=== PATIENT | male | born 1940 | race Caucasian/White ===

== ENCOUNTER 2018-02-22 05:57 | Inpatient (IN) | payer MEDICARE, BC ==
[2018-02-22 07:00] LABS: ALT (SGPT) 56 U/L (8-55); AST (SGOT) 64 U/L (5-34); Albumin 3.6 g/dL (3.4-4.8); Alkaline Phosphatase 659 U/L (40-150); Anion Gap 25 mmol/L (10-20); BUN (Urea Nitrogen) 74 mg/dL (8.4-25.7); Bilirubin, Total 0.3 mg/dL (0.2-1.2); Calc. Creatinine Clearance 0 mL/min (70-130); Calcium 9.1 mg/dL (7.8-10.44); Carbon Dioxide 15 mmol/L (23-31); Chloride 100 mmol/L (98-107); Estimated GFR-MDRD 7; Globulin 2.8 g/dL (2.4-3.5); Glucose 119 mg/dL (83-110); Potassium 4.9 mmol/L (3.5-5.1); Protein, Total 6.4 g/dL (5.8-8.1); Sodium 135 mmol/L (136-145)
[2018-02-22 07:01] LABS: Bilirubin Negative (Negative); Blood, Urine Negative (Negative); Clarity Slightly Cloudy (Clear); Glucose, Urine (Dipstick) Negative (Negative); Leukocyte Negative (Negative); Nitrite Negative (Negative); Protein, Urine (Dipstick) Negative (Neg-Trace); Urobilinogen 0.2 mg/dL (0.2-1.0)
[2018-02-22 07:02] LABS: Specific Gravity, Urine 1.012 (1.002-1.036)
[2018-02-22 07:48] LABS: #Basophils 0.1 thou/uL (0.0-0.2); #Eosinphils 0.1 thou/uL (0.0-0.7); #Lymphocytes 1.1 thou/uL (1.20-3.40); #Monocytes 0.5 thou/uL (0.11-0.59); #Neutrophils 6.1 thou/uL (1.40-6.50); %Basophils 0.7 % (0.0-1.0); %Lymphocytes 14.4 % (21.0-51.0); %Neutrophils 77.9 % (42.0-75.0); Hemoglobin 11.5 g/dL (14.0-18.0); Mean Corpuscular HGB CONC 34.6 g/dL (32.0-36.0); Mean Corpuscular Volume 83.9 fL (78.0-98.0); Mean Platelet Volume 6.7 fL (7.4-10.4); Platelet Count 169 thou/uL (130-400); RBC Distribution Width 12.3 % (11.5-14.5); Red Blood Cell (RBC) Count 3.98 mill/uL (4.70-6.10); White Blood Cell (WBC) Count 7.8 thou/uL (4.8-10.8)
[2018-02-22] MEDS ORDERED: HYDROcodone/Acetaminophen 5/325 mg Tablet ONE (08:58)
[2018-02-22] MEDS ORDERED: Ondansetron HCl/PF 4 MG/2 ML Vial ONE (08:58)
[2018-02-22 10:48] VITALS: BMI 24.7
[2018-02-22] MEDS ORDERED: Sodium Chloride 0.9% 1,000 ML IV SCH (11:00)
[2018-02-22] MEDS ORDERED: Ondansetron ODT 4 MG TAB SL PRN (11:00)
[2018-02-22] MEDS ORDERED: HYDROcodone/Acetaminophen 5/325 mg Tablet PO PRN ×2 (11:00)
[2018-02-22] MEDS ORDERED: Ondansetron HCl/PF 4 MG/2 ML Vial IVP PRN (11:00)
[2018-02-22] MEDS ORDERED: Acetaminophen 325 MG TAB PO PRN (12:27)
[2018-02-22] MEDS ORDERED: Diazepam 5 MG TAB PO SCH (13:00)
--- NOTE | 2018-02-22 13:41 | HP ---
PRIMARY CARE PROVIDER: Dr. Olguin. HISTORY OF PRESENT ILLNESS: The patient has a history of pelvic discomfort, decreased urinary amount s with increased frequency since early this year. He has had nocturia 8-10 times. In July, he wa s put on Flomax, sent to urologist to continue the Flomax. No change. In October, he continued to hav e pelvic discomfort. He thought it was worse. His urination was worse. He was put on tolterodine 4 mg a day. He went back to see the urologist, was started Myrbetriq, no improvement. He got worse, weak, lethargic, sleepy, easy fatigued. Stopped all medicines on his own. Mid December, he has had incr easing pelvic discomfort, started taking Tylenol, then moved to aspirin products like Martine-Harcourt, B C powder. In the past several days, his urinary stream has dropped to drops and pain is worse. He w ent to the emergency room and found to have a distended bladder. Smart catheter was placed. Initial ly, the urine was clear, it is now bloody, looking like hyde Reji-Aid. He notes that the pelvic ba ck pain radiated down to his knees. Also, notes that he fell, December a year ago, while on vacation. PAST MEDICAL HISTORY: Hypertension; elevated cholesterol; polio as a child, recovered. CURRENT MEDICATIONS: diphenhydramine, aspirin 81 mg a day, aspirin with caffeine, aspirin with sodium bicarbonate and citric acid, , Zetia 10 mg a day, Myrbetriq, Flomax, tolterodine tartrat e 4 mg a day, valsartan/hydrochlorothiazide 160/12.5 one a day. ALLERGIES: ASPIRIN and NSAIDS. PAST SURGICAL HISTORY: None. FAMILY HISTORY: Mother of CHF at 88. Father of CHF at 82. He had mild diabetes. He has a sister that of coronary artery disease with diabetes and a sister that of colon cancer. He is a nonsmoker, nonalcohol drinker. FULL CODE status. . , next of kin, at bedside. REVIEW OF SYSTEMS: General: He said he did have chills and shakes when he was on the 3 urinary trac t medicines. Eyes: No double vision, blurred vision, flashing of lights. Ears, Nose, and Throat: No ear pain or drainage. No nasal bleeding. No trouble swallowing. Cardiac: No chest pain, orthop maria isabel, or paroxysmal nocturnal dyspnea. Respirations: No cough, wheezing, or asthma. Gastrointestina l: He had nausea and vomiting once a day for the past several days. He has had black tarry stools, which he relates to his Pepto-Bismol he has taken at times. Musculoskeletal: He has pain in his pel vis and his hips. He states he is unable to sleep on either side due to the pain in his hip joints. Neurological: No strokes, seizures, or focal weakness. Psychiatric: No anxiety or depression. Sk in: Easy bruising relates to aspirin. No rash. Heme/Lymph: No tender or swollen lymph nodes in ax illa, inguinal, or cervical area. PHYSICAL EXAMINATION: GENERAL: He is an alert, cooperative, pleasant gentleman, in no acute distress. VITAL SIGNS: Temperature 98.2, pulse 70, respirations 16, O2 sat 95, blood pressure 166/70. HEENT: Examination of his head, eyes, ears, nose, and throat reveal pupils equal, round, and reactiv e to light. Extraocular movements are intact. Sclerae white. Tympanic membranes clear. Nose clear . Throat is clear. NECK: Supple, without jugular venous distention, adenopathy, or thyromegaly. CHEST: Clear to auscultation. HEART: Regular rate and rhythm. First and second heart sounds are clear. There are no appreciated murmurs or gallops. ABDOMEN: Soft, bowel sounds are normal. There is no hepatosplenomegaly, no mass, no rebound, no bru its. EXTREMITIES: Reveal no cyanosis, clubbing, or edema. PULSES: Carotid, radial, femoral, and dorsalis pedis pulses full and symmetric. SKIN: Warm and dry with some minor actinic changes-related bruising on his forearms. HEME/LYMPH: No tender or swollen lymph nodes in axilla, inguinal, or cervical area. NEUROLOGICAL: Cranial nerves II-XII are intact. Deep tendon reflexes seem to be fairly hyper his le gs to me, although his strength is not noticeably diminished. Toes downgoing. X-RAY FINDINGS: No EKG or chest x-ray; they have been ordered. LABORATORY DATA: Sodium 135, potassium 4.9, CO2 of 15, BUN 74, creatinine 7.3, blood sugar 119, AST 64, ALT 56, alkaline phosphatase 659. Urine is clear. White count 7.8, hemoglobin 11.5, platelet co unt 169,000. ADMITTING DIAGNOSES: 1. Acute renal failure. 2. Obstructive uropathy. 3. Pelvic pain. 4. Hypertension. 5. History of fall. ASSESSMENT: 1. The etiology of this patient's acute renal failure and obstructive uropathy is not clear. Workup will involve an MRI of the spine to look for evidence of spinal injury and cord compression. Also, CT of the abdomen without contrast will be done to look at his kidneys, his ureters, his bladder. Pl ain films of the pelvis will be done to look at his pelvic bones for possible lytic lesions. 2. Urinalysis and urine culture will be done. PSA will be done. Smart has been placed. Renal func tion test will be followed daily. Urology will be consulted eventually. Dr. Ray will be consulted f or acute renal failure.
[2018-02-22] MEDS: HYDROcodone/Acetaminophen 5/325 mg Tablet PO PRN ×3 (14:25→22:19)
[2018-02-22] MEDS: Ondansetron ODT 4 MG TAB PO PRN ×2 (14:25→22:36)
[2018-02-22 14:47] LABS: Bilirubin Negative (Negative); Blood, Urine Large (Negative); Clarity CLOUDY (Clear); Glucose, Urine (Dipstick) Negative (Negative); Leukocyte Moderate (Negative); Nitrite Negative (Negative); Protein, Urine (Dipstick) 30 mg/dL (Neg-Trace); Specific Gravity, Urine 1.014 (1.002-1.036); Urobilinogen 0.2 mg/dL (0.2-1.0); pH, Urine 5.5 (5.0-9.0)
[2018-02-22 14:49] LABS: Bacteria/HPF None Seen HPF (None Seen); Hyaline Casts/LPF 0-3 HYALINE CAST LPF (0-3 Hyaline); Pathc Cast-AUWi Flag 0.14 (0-2.49); RBC/HPF GREATER THAN 50-TNTC HPF (0-3); Squamous Epithelial None Seen HPF (0-3); WBC/HPF 0-3 HPF (0-3)
[2018-02-22] MEDS ORDERED: Calcium Carbonate 500 MG ChewTAB PO PRN (15:16)
--- NOTE | 2018-02-22 15:20 | RAD ---
PA AND LATERAL VIEWS OF THE CHEST: History: Pelvic pain. FINDINGS: Heart size is normal. The aorta is tortuous. The lungs are expanded without focal areas of consolidat ion or pneumothorax. There are pleural effusions. There are degenerative changes in the spine. IMPRESSION: No acute process. POS: [facility]
--- NOTE | 2018-02-22 17:38 | MRI ---
MRI LUMBAR SPINE WITHOUT CONTRAST: HISTORY: Bladder retention. Pelvic pain. FINDINGS: The vertebral body heights are maintained. There is diffuse heterogeneity and reduction in the bone marrow signal on the T1 images. There is grade 1 anterolisthesis of L5 over S1. Disk desiccation is most prominent at the L5-S1 level. Disk space narrowing is noted at multiple levels in the lower th oracic and upper lumbar spine. The conus medullaris ends at the L2 level. There are disk bulges at the L3-L4, L4-L5, and L5-S1 levels, and bilateral acetabular atrophic changes. There is mild to mode rate central canal stenosis at the L4-L5 level. Mild left neural foraminal stenosis is seen at the L 3-L4, L4-L5, and L5-S1 levels. There is mild right-sided neural foraminal stenosis at the L5-S1 leve l. Incidental note is also made of prominent pelvicalyceal systems and ureters bilaterally. The paraspi nal musculature is unremarkable. IMPRESSION: 1. Lumbar spondylosis with central and neural foraminal stenosis, as discussed above. 2. Grade 1 anterolisthesis of L5/S1. 3. Marrow abnormality. Correlation for myeloproliferative, lymphoproliferative, or infiltrative dis orders is recommended. 4. Probable bilateral hydroureteronephrosis. Dedicated CT scan of the abdomen and pelvis using the urography protocol is recommended. POS: [facility]
--- NOTE | 2018-02-22 17:46 | RAD ---
FRONTAL VIEW PELVIS: INDICATIONS: Pelvic pain. FINDINGS: Diffuse degenerative change of the imaged pelvic and lower lumbar osseous structures is present. No acute fracture. There are pelvic phleboliths. There is a focal area of increased density overlying the left ilium, not further localized on the basis of this exam. There is incidental note of a urinary catheter. IMPRESSION: 1. No acute fracture of the pelvis. 2. Density overlying the left ilium, not further localized. This could relate to superimposed struc ture or, alternatively, a sclerotic focus of the left ilium. Follow-up imaging may prove useful for further delineation. POS: [facility]
--- NOTE | 2018-02-22 17:52 | CT ---
CT ABDOMEN AND PELVIS NONCONTRAST: HISTORY: Renal failure. FINDINGS: There is moderate distention of each renal collecting system and ureter, to the level of the urinary bladder, which is decompressed by a Smart catheter. There is wall thickening of the bladder with mathew e irregularity. Gas within the bladder is likely related to instrumentation. No stones are apparent along the course of either urinary tract. Lack of contrast limits evaluation for other abnormalities. There is left pleural fluid with bibasil ar atelectasis. There is no evidence of bowel obstruction. A rounded, exophytic mass projecting lat erally from the superior pole left kidney is 3.8 cm in diameter and warrants further evaluation. Str anding is present throughout the left perirenal fat with a small amount of fluid. Prominent arterial calcification. Degenerative changes of the lumbar spine. IMPRESSION: 1. Moderate bilateral hydroureteronephrosis without cause evident. The urinary bladder is now decom pressed by a Smart catheter. While bilateral and symmetric partial ureterovesical junction obstructi ons are a possibility, other possibilities would include chronic reflux or persistent dilatation rela kimmie to recent and longstanding urinary outlet obstruction with immediately prior bladder decompressio n. 2. Stranding within the left perirenal fat may reflect urine from a forniceal rupture. It does not have the appearance of clotted blood. 3. Exophytic mass at the superior pole left kidney, 3.8 cm. This has the appearance of a cyst on re cent MRI lumbar spine. 4. Atherosclerosis. 5. Small left pleural effusion. Cause is not evident. POS: [facility]
[2018-02-22] MEDS: Sodium Chloride 0.9% 1,000 ML IV SCH ×2 (18:15→21:25)
[2018-02-22] MEDS ORDERED: Valsartan 80 MG TAB PO SCH (20:30)
[2018-02-22] MEDS ORDERED: hydrALAZINE 10 MG TAB PO PRN (20:31)
[2018-02-22] MEDS ORDERED: Hydrochlorothiazide 25 MG TAB PO SCH (20:45)
[2018-02-22] MEDS: Zolpidem Tartrate 5 MG TAB PO PRN (20:52)
[2018-02-22] MEDS ORDERED: VALSARTAN PO SCH (21:15)
[2018-02-22] MEDS ORDERED: HCTZ PO SCH (21:15)
[2018-02-23] MEDS: HYDROcodone/Acetaminophen 5/325 mg Tablet PO PRN ×4 (03:35→21:01)
[2018-02-23] MEDS: Sodium Chloride 0.9% 1,000 ML IV SCH ×5 (03:36→21:02)
[2018-02-23] MEDS: Ondansetron ODT 4 MG TAB PO PRN ×2 (04:38→11:34)
[2018-02-23 05:16] LABS: Anion Gap 18 mmol/L (10-20); BUN (Urea Nitrogen) 54 mg/dL (8.4-25.7); Calc. Creatinine Clearance 16 mL/min (70-130); Calcium 8.6 mg/dL (7.8-10.44); Carbon Dioxide 17 mmol/L (23-31); Chloride 107 mmol/L (98-107); Estimated GFR-MDRD 13; Glucose 82 mg/dL (83-110); Potassium 4.6 mmol/L (3.5-5.1); Sodium 137 mmol/L (136-145)
[2018-02-23] MEDS: HCTZ PO SCH (07:40)
[2018-02-23] MEDS: Ezetimibe 10 MG TAB PO SCH (07:40)
[2018-02-23] MEDS: VALSARTAN PO SCH (07:40)
--- NOTE | 2018-02-23 08:12 | PDOC.PN ---
- Subjective Encounter Start Date: 02/23/18 Encounter Start Time: 08:09 Subjective: no fever, chills. back pain persists - Objective Resuscitation Status: Resuscitation Status FULL:Full Resuscitation MAR Reviewed: Yes Vital Signs & Weight: Vital Signs (12 hours) Temp Pulse Resp BP Pulse Ox 02/23/18 04:00 98.3 F 72 14 137/73 94 L 02/23/18 00:22 98.7 F 62 12 169/75 H 92 L Weight Weight 172 lb 0.074 oz I&O: 02/22/18 02/23/18 02/24/18 06:59 06:59 06:59 Output Total 1450 Balance -1450 Result Diagrams: 02/22/18 07:30 02/23/18 04:21 Phys Exam - Physical Examination Neck: no JVD Respiratory: clear to auscultation bilateral Cardiovascular: RRR, no significant murmur Gastrointestinal: soft, non-tender Musculoskeletal: no edema Dx/Plan (1) Acute renal failure Status: Acute Qualifiers: Acute renal failure type: unspecified Qualified Code(s): N17.9 - Acute kidney failure, unspecified (2) Obstructive uropathy Code(s): N13.9 - OBSTRUCTIVE AND REFLUX UROPATHY, UNSPECIFIED Status: Acute (3) HTN (hypertension) Code(s): I10 - ESSENTIAL (PRIMARY) HYPERTENSION Status: Chronic Qualifiers: Hypertension type: essential hypertension Qualified Code(s): I10 - Essential (primary) hypertension (4) Back pain Code(s): M54.9 - DORSALGIA, UNSPECIFIED Status: Acute Qualifiers: Back pain location: back pain in unspecified location - Plan cont ortiz drainage -: urology consult -: morphine prn for pain * .
[2018-02-23] MEDS ORDERED: Valsartan 80 MG TAB PO SCH (09:00)
[2018-02-23] MEDS ORDERED: Hydrochlorothiazide 25 MG TAB PO SCH (09:00)
[2018-02-23] MEDS: Polyethylene Glycol OPTH DROP 15 ML BOT EA EYE SCH (09:20)
[2018-02-23] MEDS: Polyethylene Glycol 3350 17 GM Packet PO PRN (09:20)
[2018-02-23] MEDS: Latanoprost 0.005% Ophth Soln 2.5 ml Bottle EA EYE SCH (09:20)
--- NOTE | 2018-02-23 23:54 | CON ---
DATE OF CONSULTATION: 02/22/2018 HISTORY OF PRESENT ILLNESS: This is a 77-year-old white male of Dr. Brito' from [facility], who had asked me to see today. He came in, I believe, yesterday with back pain and found to have a creatinine of 7. His bladder was distended, and he had a Smart catheter placed in the emergency de partment and then ended up having a CAT scan done, because of his creatinine being elevated. The CAT scan showed bilateral hydro. The bladder at that point was not distended. He had some thickening o f the bladder ham[place] and some air in the bladder. It was most likely from the catheter placement. It looked like he had about 1100 mL in his bag drainage. I am not sure if that was the whole time he w as in the ER or if that is just after the Smart was placed. His creatinine has already improved in t he mid 4 range today. He is making good urine output. His urine was initially clear. The initial u rinalysis was negative, but his urine became grossly bloody, which is not uncommon after placement of a Smart catheter. The CAT scan did not show any evidence of obvious renal mass or stone. It was a noncontrast study, however, because of the elevated creatinine. There was a little bit of straining around the left perirenal region. There was probably a cyst in the left kidney, looked like a cyst o n a recent MRI of the lumbar spine. He also did have a lumbar spine, because of back pain that did n ot get better with the placement of Smart catheter. His pelvic pain did, but his back pain did not, and this showed some changes of spondylosis, and perhaps some marrow abnormality. I think Dr. Brito is working this up. On talking with him further, he has been having difficulty urinating for probabl y a year, although it became bad enough that, in July, he sought help and was started on tamsulosi n without much benefit and then added some Detrol, because of urinary frequency and then added some M yrbetriq. He actually stopped taking all of these a week or so before coming in to the hospital at t his point. He has not had urinary tract infections or stone disease. He has never seen blood in his urine, but did have microscopic blood in his urine on the physical exam in the last few months. He has been having constipation over the last few months. No family history of prostate cancer, no prio r prostate surgery himself, no prior history of Smart catheterization. His PSAs generally have been normal, although his PSA slightly over 5 now, but that was done after the catheter was in. He, over the last few months, has been having steadily worsening flow of his stream, just dribbling, decreasin g caliber and force behind the stream, increasing nocturia, increasing urgency, urge incontinence to the point it has probably been an overflow incontinence. MEDICAL HISTORY: Positive for hypertension, hypercholesterolemia, and childhood polio, which has lef t him with minimal problems with his left arm and right leg. He takes aspirin. He takes occasional bicarb. He takes Zetia, and he is mentioning he was on Detrol, Flomax, and Myrbetriq before coming i n, but is not on it for a week or two before coming in. He takes valsartan, hydrochlorothiazide. ALLERGIES: He has allergies to NONSTEROIDALS and says he has an allergy to ASPIRIN, but I think he i s taking aspirin. He has not had any other surgeries. PHYSICAL EXAMINATION: ABDOMEN: His flanks are nontender. His abdomen is soft and nontender. GENITOURINARY: He is not circumcised. There is no phimosis, no lesions. Testicles are descended wi thout mass or tenderness. Smart catheter is draining a slightly bloody urine. He does have, what ap pears to be, fairly normal sensation on his inner thighs and perianal region. He has got normal rect al tone and voluntary anal contraction. He has got normal strength in his lower extremities. IMPRESSION: 1. Elevated creatinine, most likely post-renal cause with a distended urinary bladder that has been corrected with an indwelling Smart catheter. I would expect his creatinine to return to nearly basel ine for him. 2. Hematuria. This should also clear in the next day or two and it is typical with somebody with a distended bladder that has had a Smart placed. 3. Probable renal cyst. 4. Longstanding lower urinary tract symptoms. I think the best way to manage this would be to leave this catheter in for about 10 days to see him in the office and do a cystometrogram and a cystoscopy and see if we are dealing with obstruction or if we are dealing with a weak detrusor. This is all e xplained to him. All questions were answered, spent probably 45 minutes to an hour with the patient and his . I w ill follow along with you.
[2018-02-24] MEDS: HYDROcodone/Acetaminophen 5/325 mg Tablet PO PRN ×2 (00:50→05:12)
[2018-02-24 04:50] LABS: Anion Gap 16 mmol/L (10-20); BUN (Urea Nitrogen) 48 mg/dL (8.4-25.7); Calc. Creatinine Clearance 17 mL/min (70-130); Carbon Dioxide 19 mmol/L (23-31); Chloride 109 mmol/L (98-107); Estimated GFR-MDRD 15; Glucose 78 mg/dL (83-110); Potassium 4.9 mmol/L (3.5-5.1); Sodium 139 mmol/L (136-145)
[2018-02-24] MEDS: Sodium Chloride 0.9% 1,000 ML IV SCH ×4 (04:57→20:12)
[2018-02-24] MEDS: Ondansetron ODT 4 MG TAB PO PRN ×2 (07:47→20:13)
--- NOTE | 2018-02-24 07:48 | PDOC.PN ---
- Subjective Encounter Start Date: 02/24/18 Encounter Start Time: 07:45 Subjective: severe back pain persists, gross hematuia persists - Objective Resuscitation Status: Resuscitation Status FULL:Full Resuscitation MAR Reviewed: Yes Vital Signs & Weight: Vital Signs (12 hours) Temp Pulse Resp BP Pulse Ox 02/24/18 07:19 98.0 F 68 18 139/75 93 L 02/23/18 20:00 98.4 F 73 18 97 Weight Admit Weight 172 lb 0.074 oz Weight 172 lb 0.074 oz I&O: 02/23/18 02/24/18 02/25/18 06:59 06:59 06:59 Intake Total 0 2139 Output Total 3100 1575 Balance -1050 564 Result Diagrams: 02/22/18 07:30 02/24/18 03:30 Phys Exam - Physical Examination Neck: no JVD Respiratory: clear to auscultation bilateral Cardiovascular: RRR, no significant murmur Gastrointestinal: soft, positive bowel sounds Musculoskeletal: no edema Dx/Plan (1) Acute renal failure Status: Acute Qualifiers: Acute renal failure type: unspecified Qualified Code(s): N17.9 - Acute kidney failure, unspecified (2) Obstructive uropathy Code(s): N13.9 - OBSTRUCTIVE AND REFLUX UROPATHY, UNSPECIFIED Status: Acute (3) HTN (hypertension) Code(s): I10 - ESSENTIAL (PRIMARY) HYPERTENSION Status: Chronic Qualifiers: Hypertension type: essential hypertension Qualified Code(s): I10 - Essential (primary) hypertension (4) Back pain Code(s): M54.9 - DORSALGIA, UNSPECIFIED Status: Acute Qualifiers: Back pain location: back pain in unspecified location - Plan consult nephrology -: consult NS -: cont ortiz -: monitor renal fcn * .
[2018-02-24] MEDS: Polyethylene Glycol OPTH DROP 15 ML BOT EA EYE SCH (07:49)
[2018-02-24] MEDS: Latanoprost 0.005% Ophth Soln 2.5 ml Bottle EA EYE SCH (07:49)
[2018-02-24] MEDS: Ezetimibe 10 MG TAB PO SCH ×2 (07:50→09:04)
[2018-02-24] MEDS: HYDROcodone/Acetaminophen 7.5/325 mg Tablet PO PRN ×4 (09:01→20:33)
[2018-02-24] MEDS: Polyethylene Glycol 3350 17 GM Packet PO PRN (09:04)
[2018-02-24] MEDS: HCTZ PO SCH (09:04)
[2018-02-24] MEDS: VALSARTAN PO SCH (09:04)
[2018-02-24] MEDS ORDERED: Albumin 25% 25 GM/100 ML BOT IVPB ONE (09:09)
[2018-02-24] MEDS: Albumin 25% 25 GM/100 ML BOT IVPB SCH ×3 (12:40→23:43)
--- NOTE | 2018-02-24 13:22 | CON ---
DATE OF CONSULTATION: 02/24/2018 HISTORY OF PRESENT ILLNESS: Mr. 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 This was found to be secondary to obstructive uropathy. He does have history of BPH. Smart catheter has been inserted with diuresis noted. However, creatinine is not fu lly resolved to near normal or baseline GFR. Creatinine was initially noted in the 7s and currently is about 4.2 mg percent. We are being consulted for further management of this acute kidney injury. Please note the patient h as been seen by the urologist, Dr. Estrada. REVIEW OF SYSTEMS: Positive for back pain, occasional joint pains. No nausea, no vomiting. Positiv e for dysuria, positive for urinary frequency. No shortness of breath, no productive cough, no fever or chills. No headache, no hematochezia, no melena, no hematemesis. MEDICATIONS: [place] 7.5/325 q.4. p.r.n., albumin 25 grams IV q.6, Tums 500 mg p.o. t.i.d. p.r.n., Ze tia 10 mg daily, Xalatan eyedrop as directed, hydralazine p.r.n., Valsartan - currently on hold. PAST MEDICAL HISTORY: 1. Hypertension. 2. Benign prostatic hypertrophy. 3. Hyperlipidemia. 4. Status post polio. 5. Chronic low back pain. 6. Recent diagnosis of acute kidney injury secondary to obstructive uropathy. PAST SURGICAL HISTORY: Includes status post colonoscopy x2. ALLERGIES: NSAIDs. TRAUMA: Status post right forearm fracture, status post hand fracture. IMMUNIZATIONS: Up to date. HOSPITALIZATIONS: Please see past medical history. FAMILY HISTORY: No family history of ESRD. PHYSICAL EXAMINATION: VITAL SIGNS: Blood pressure is 139/75, heart rate 68, respiratory rate 18, temperature 98, pulse ox 93%. GENERAL: Noted to be awake, alert, comfortable, not in overt distress. SKIN: Adequate turgor. HEENT: He has pinkish conjunctivae, anicteric sclerae. NECK: No neck mass, no carotid bruits, no JVD. CHEST: No deformities. LUNGS: Clear breath sounds, no wheezing, no crackles. HEART: Normal sinus rhythm. No murmur, no gallops or rubs. ABDOMEN: Globular, soft, nontender, no masses. EXTREMITIES: No edema, no deformities. NEUROLOGICAL: Moving all extremities. No tremors, no asterixis, no ataxia. LABORATORY: 02/22/2018 - White count 7.8, hemoglobin 11.5. Sodium 139, potassium 4.9, chloride 109, carbon dioxide 19, BUN 48, creatinine 4.04, glucose 78, calcium 9.0. PSA 5.74. CT scan of the abdomen and pelvis shows hydronephrosis. 02/22/2018 - Chest x-ray; no acute process. Urinalysis of 02/22/2018, cloudy, RBC greater than 50, WBC 0-3. ASSESSMENT AND PLAN: 1. Acute kidney injury - most likely secondary to an obstructive uropathy. Smart catheter has been inserted. He is diuresing. My bias is simple continuation of the IV hydration. Currently on normal saline. I have decided to order salt poor albumin. Urine chemistries has also been ordered. The u rine sediment does not suggest any evidence of acute tubular necrosis. My anticipation is that the r enal function will further improve with the current conservative management. 2. Obstructive uropathy being managed by Urology. In the near future a planned cystoscopy is being made. There is no indication for dialytic intervention. Continue current management. Please note, the pat ient was previously on valsartan. This has now been discontinued. Please note, we did also have started the patient on salt poor albumin 25 grams IV q.6 for 3 days.
[2018-02-24 13:25] LABS: Creatinine, Urine 58.01 mg/dL (63-166)
[2018-02-24] MEDS: Zolpidem Tartrate 5 MG TAB PO PRN (20:38)
[2018-02-25] MEDS: HYDROcodone/Acetaminophen 7.5/325 mg Tablet PO PRN ×7 (00:53→23:57)
[2018-02-25] MEDS: Ondansetron ODT 4 MG TAB PO PRN ×3 (04:58→20:08)
[2018-02-25] MEDS: Albumin 25% 25 GM/100 ML BOT IVPB SCH ×4 (05:00→23:58)
[2018-02-25 06:22] LABS: Anion Gap 16 mmol/L (10-20); BUN (Urea Nitrogen) 40 mg/dL (8.4-25.7); Calc. Creatinine Clearance 23 mL/min (70-130); Calcium 8.8 mg/dL (7.8-10.44); Carbon Dioxide 16 mmol/L (23-31); Chloride 111 mmol/L (98-107); Estimated GFR-MDRD 20; Glucose 78 mg/dL (83-110); Potassium 4.4 mmol/L (3.5-5.1); Sodium 139 mmol/L (136-145)
[2018-02-25] MEDS: Sodium Chloride 0.9% 1,000 ML IV SCH ×4 (07:12→21:52)
[2018-02-25] MEDS: VALSARTAN PO SCH (08:20)
[2018-02-25] MEDS: HCTZ PO SCH (08:20)
[2018-02-25] MEDS: Ezetimibe 10 MG TAB PO SCH (08:27)
[2018-02-25] MEDS: Polyethylene Glycol OPTH DROP 15 ML BOT EA EYE SCH (08:28)
[2018-02-25] MEDS: Latanoprost 0.005% Ophth Soln 2.5 ml Bottle EA EYE SCH (08:29)
--- NOTE | 2018-02-25 10:16 | PRG ---
DATE OF SERVICE: 02/25/2018 SERVICE: Renal Medicine. SUBJECTIVE: Mr. Blood is a 77-year-old white male who was seen by the Renal Service for his acute k idney injury secondary to presumptive obstructive uropathy. A Smart catheter has been inserted. He has received crystalloids and I started him on Colace yesterday. Creatinine is slowly improving. Cr eatinine now is noted at 3.0 and yesterday this was about 4.1. He has no new complaints today. He s till has some mild gross hematuria noted. No complaints of chest pain or shortness of breath. OBJECTIVE: VITAL SIGNS: Blood pressure is 149/84, heart rate 85, respiratory rate 16, temperature 98.2, pulse o x 95%. GENERAL: Awake, alert, supine, comfortable, not in distress. SKIN: Adequate turgor. HEENT: He has pinkish conjunctivae, anicteric sclerae. NECK: No neck mass, no carotid bruits, no JVD. CHEST: No deformities. LUNGS: Clear breath sounds. HEART: Normal sinus rhythm. No murmur, no gallops, no rubs. ABDOMEN: Globular, soft, nontender, no masses. EXTREMITIES: No edema, no deformities. MEDICATIONS: Of 02/25/2018 was reviewed. LABORATORY DATA: Of 02/24/2018, urine sodium 102, urine creatinine 58. BUN 40, creatinine 3.0, pota ssium 4.4, bicarbonate 16. ASSESSMENT AND PLAN: Acute kidney injury - secondary to obstructive uropathy. Continue IV hydration . He is currently on albumin infusion as well as normal saline. Tomorrow if the renal function is m uch improved, consider decreasing urine normal saline to 125 mL per hour. Please note, renal functio n is much improved from a peak creatinine of 7.3 to most recent value of 3.0. No indication for any dialytic intervention. The patient is being followed up by Urology for his presumptive low bladder outlet obstruction. Recheck base met and CBC in a.m.
--- NOTE | 2018-02-25 11:00 | PDOC.PN ---
- Subjective Encounter Start Date: 02/25/18 Encounter Start Time: 10:58 Subjective: back pain improved, urine still bloody - Objective Resuscitation Status: Resuscitation Status FULL:Full Resuscitation MAR Reviewed: Yes Vital Signs & Weight: Vital Signs (12 hours) Temp Pulse Resp BP Pulse Ox 02/25/18 08:33 149/84 H 02/25/18 08:24 98.2 F 85 16 170/78 H 95 Weight Admit Weight 172 lb 0.074 oz Weight 172 lb 0.074 oz I&O: 02/24/18 02/25/18 02/26/18 06:59 06:59 06:59 Intake Total 2139 3850 Output Total 1575 2200 Balance 564 1650 Result Diagrams: 02/22/18 07:30 02/25/18 05:34 Phys Exam - Physical Examination Neck: no JVD Respiratory: clear to auscultation bilateral Cardiovascular: RRR, no significant murmur Gastrointestinal: soft, positive bowel sounds Musculoskeletal: no edema Dx/Plan (1) Acute renal failure Status: Acute Qualifiers: Acute renal failure type: unspecified Qualified Code(s): N17.9 - Acute kidney failure, unspecified (2) Obstructive uropathy Code(s): N13.9 - OBSTRUCTIVE AND REFLUX UROPATHY, UNSPECIFIED Status: Acute (3) HTN (hypertension) Code(s): I10 - ESSENTIAL (PRIMARY) HYPERTENSION Status: Chronic Qualifiers: Hypertension type: essential hypertension Qualified Code(s): I10 - Essential (primary) hypertension (4) Back pain Code(s): M54.9 - DORSALGIA, UNSPECIFIED Status: Acute Qualifiers: Back pain location: back pain in unspecified location (5) Hematuria Code(s): R31.9 - HEMATURIA, UNSPECIFIED Status: Acute - Plan renal fcn improving, good urine output -: back pain improving, NS consult pending -: urine C&S neg, no antibx indicated * .
[2018-02-25] MEDS: Sodium Bicarbonate Tab 325 MG TAB PO SCH ×3 (11:29→20:03)
--- NOTE | 2018-02-25 13:44 | CON ---
DATE OF CONSULTATION: 02/22/2018 HISTORY OF PRESENT ILLNESS: Mr. Blood is a 77-year-old man who was admitted to the hospital for syed ious reasons, one of those being low back pain with radicular L3 pains in left lower extremity. He h as a new MRI scan performed well. He has been in the hospital that reveals narrowing in the lateral recess and foramen at this level that likely matches. He has had this pain since a fall a few months ago on a trip in [place], pain has slowly worsened in time and at present causing him a great deal o f discomfort and disrupt a significant amount of his sleep. His pain is reasonably well controlled o n 7.5 mg [place] tablets while he has been inpatient, but it is new and ongoing problem. His joseph gonzales has cervical pains and has seen Dr. Campos, I think that would be a reasonable, first step would be to set up an injection and possibly a consult pain management while he is here and the patie nt is already and get that process rolling.
[2018-02-25] MEDS: Polyethylene Glycol 3350 17 GM Packet PO PRN (20:07)
[2018-02-25] MEDS: Zolpidem Tartrate 5 MG TAB PO PRN (20:08)
[2018-02-26] MEDS: Sodium Chloride 0.9% 1,000 ML IV SCH ×5 (02:30→18:20)
[2018-02-26] MEDS: Ondansetron ODT 4 MG TAB PO PRN ×3 (03:53→20:58)
[2018-02-26] MEDS: HYDROcodone/Acetaminophen 7.5/325 mg Tablet PO PRN ×7 (03:53→23:57)
[2018-02-26 05:08] LABS: Anion Gap 12 mmol/L (10-20); BUN (Urea Nitrogen) 41 mg/dL (8.4-25.7); Calc. Creatinine Clearance 21 mL/min (70-130); Calcium 8.8 mg/dL (7.8-10.44); Carbon Dioxide 19 mmol/L (23-31); Chloride 110 mmol/L (98-107); Estimated GFR-MDRD 18; Glucose 79 mg/dL (83-110); Potassium 4.3 mmol/L (3.5-5.1); Sodium 137 mmol/L (136-145)
[2018-02-26] MEDS: Albumin 25% 25 GM/100 ML BOT IVPB SCH ×2 (05:10→11:06)
[2018-02-26] MEDS: Ezetimibe 10 MG TAB PO SCH (08:39)
[2018-02-26] MEDS: Sodium Bicarbonate Tab 325 MG TAB PO SCH ×3 (08:39→20:57)
[2018-02-26] MEDS: Polyethylene Glycol OPTH DROP 15 ML BOT EA EYE SCH (08:39)
[2018-02-26] MEDS: Latanoprost 0.005% Ophth Soln 2.5 ml Bottle EA EYE SCH (08:40)
--- NOTE | 2018-02-26 10:02 | PRG ---
DATE OF SERVICE: 02/26/2018 SUBJECTIVE: Mr. Blood is a 77-year-old white male who was seen for his acute kidney injury. Initia lly, he was found to have obstructive uropathy. Smart catheter is inserted and this improved renal f unction. However, the renal function did not fully resolve to normal function. His creatinine is ho vering around 3.1 mg percent. We will be repeating renal ultrasound. IV hydration, crystalloid and colloids have been given. I have decreased normal saline to 100 mL per hour. No other complaints except for this back pain. He has been evaluated by Neurosurgery. He wa s found to have a radiculopathy and has been referred to pain clinic. No other complaints, no chest pain or shortness of breath. PHYSICAL EXAMINATION: VITAL SIGNS: Blood pressure is 167/82, heart rate 70, respiratory rate 18, temperature 99.9. GENERAL: Noted to be awake, sitting comfortable, not in distress. SKIN: Adequate turgor. HEENT: He has pinkish conjunctivae, anicteric sclerae. NECK: No neck mass, no carotid bruits, no JVD. CHEST: No deformities. LUNGS: Clear breath sounds, no wheezing, no crackles. HEART: Normal sinus rhythm. No murmurs, no gallops, no rubs. ABDOMEN: Globular, soft, nontender, no masses. EXTREMITIES: Trace edema. MEDICATIONS: Medications of 02/26/2018 was reviewed. LABORATORY DATA: Laboratories of 02/26/2018; sodium 137, potassium 4.3, chloride 110, carbon dioxide 19, BUN 41, creatinine 3.28, glucose 79, calcium 8.8. ASSESSMENT AND PLAN: 1. Acute kidney - secondary to obstructive uropathy. Creatinine is stable, but unimproved to a norm al baseline. We will repeat renal ultrasound. Please note his valsartan has already been discontinu ed. Continue supportive care. Continue gentle volume repletion, normal saline plus albumin. Please normal saline and has been decreased to 100 mL per hour. 2. Chronic low back pain. Neurosurgery has evaluated this patient. He is currently not a surgical candidate for any back surgery. Overall, agree with current management. Recheck base met and CBC in a.m.
[2018-02-26] MEDS: VALSARTAN PO SCH (11:00)
[2018-02-26] MEDS: HCTZ PO SCH (11:00)
--- NOTE | 2018-02-26 11:59 | ULT ---
BILATERAL RENAL ULTRASOUND: Date: 02/26/18 HISTORY: Renal failure, obstructive uropathy. FINDINGS: The right kidney measures 10.3 cm in length and the left kidney measures 12.2 cm in length. There is a 3.8 cm cyst in the superior pole of the left kidney. There bilateral hydronephrosis, right worse th an left. A Smart catheter is present in the urinary bladder. IMPRESSION: 1. Bilateral hydronephrosis, right worse than left. 2. Left renal cyst. POS: FOREIGN
[2018-02-26 16:15] LABS: A/G Ratio 0.9 (0.7-1.7); Albumin 2.7 g/dL (2.9-4.4); Alpha 1 0.4 g/dL (0.0-0.4); Alpha 2 1.1 g/dL (0.4-1.0); Beta 0.7 g/dL (0.7-1.3); Gamma 0.7 g/dL (0.4-1.8); Globulin, Total 2.9 g/dL (2.2-3.9); M-Spike 0.1 g/dL (Not Observed)
--- NOTE | 2018-02-26 20:54 | PDOC.PN ---
- Subjective Encounter Start Date: 02/26/18 Encounter Start Time: 11:00 Subjective: pt up in bed very upset about how long it takes for nursing to bring his -: medications. - Objective Resuscitation Status: Resuscitation Status FULL:Full Resuscitation Vital Signs & Weight: Vital Signs (12 hours) Temp Pulse Resp BP Pulse Ox 02/26/18 20:00 98.4 F 98 18 151/81 H 92 L Weight Admit Weight 172 lb 0.074 oz Weight 172 lb 0.074 oz I&O: 02/25/18 02/26/18 02/27/18 06:59 06:59 06:59 Intake Total 3850 4200 1620 Output Total 2200 2000 1550 Balance 1650 2200 70 Result Diagrams: 02/27/18 04:23 02/27/18 04:23 Phys Exam - Physical Examination HEENT: PERRLA, moist MMs, sclera anicteric, TM's clear, oral pharynx no lesions , 2+ tonsils Neck: no nodes, no JVD, supple, full ROM Respiratory: no wheezing, no rales, no rhonchi, wheezing present, clear to auscultation bilateral Cardiovascular: RRR, no significant murmur, no rub, gallop, irregular Gastrointestinal: soft, non-tender, no distention, positive bowel sounds Dx/Plan (1) Acute renal failure Status: Acute Qualifiers: Acute renal failure type: unspecified Qualified Code(s): N17.9 - Acute kidney failure, unspecified (2) Obstructive uropathy Code(s): N13.9 - OBSTRUCTIVE AND REFLUX UROPATHY, UNSPECIFIED Status: Acute (3) Back pain Code(s): M54.9 - DORSALGIA, UNSPECIFIED Status: Acute Qualifiers: Back pain location: back pain in unspecified location - Plan pt's creatinine has worsen a bit -: renal ultrasound ordered -: pt very anxious * . Review of Systems - Review of Systems ENT: negative: Ear Pain, Ear Discharge, Nose Pain, Nose Discharge, Nose Congestion, Mouth Pain, Mouth Swelling, Throat Pain, Throat Swelling, Other Respiratory: negative: Cough, Dry, Shortness of Breath, Hemoptysis, SOB with Excertion, Pleuritic Pain, Sputum, Wheezing Cardiovascular: negative: chest pain, palpitations, orthopnea, paroxysmal nocturnal dyspnea, edema, light headedness, other Gastrointestinal: negative: Nausea, Vomiting, Abdominal Pain, Diarrhea, Constipation, Melena, Hematochezia, Other Musculoskeletal: Back Pain - Medications/Allergies Allergies/Adverse Reactions: Allergies Allergy/AdvReac Type Severity Reaction Status Date / Time aspirin Allergy Verified 02/22/18 11:37 NSAIDS (Non-Steroidal Allergy Verified 02/22/18 11:37 Anti-Inflamma Medications: Current Medications Acetaminophen (Tylenol) 650 mg PO Q4H PRN PRN Reason: Headache/Fever or Pain Hydrocodone Bitart/Acetaminophen ([place] 7.5/325) 1 tab PO Q3H PRN PRN Reason: Mild Pain (1-3) Last Admin: 02/27/18 12:04 Dose: 1 tab Calcium Carbonate (Tums) 500 mg PO TID PRN PRN Reason: Heartburn or Indigestion Ezetimibe (Zetia) 10 mg PO DAILY [facility] Last Admin: 02/27/18 09:10 Dose: 10 mg Hydralazine HCl (Apresoline) 10 mg PO Q4H PRN PRN Reason: SBP >180 AND DBP >100 Last Admin: 02/26/18 08:40 Dose: 10 mg Sodium Chloride (Normal Saline 0.9%) 1,000 mls @ 100 mls/hr IV .Q10H [facility] Last Admin: 02/27/18 08:26 Dose: 1,000 mls Latanoprost (Xalatan 0.005% Ophth Soln) 1 drop EA EYE DAILY [facility] Last Admin: 02/27/18 09:13 Dose: 1 drop Ondansetron HCl (Zofran Odt) 4 mg PO Q6H PRN PRN Reason: Nausea/Vomiting Last Admin: 02/27/18 12:03 Dose: 4 mg Valsartan/ Hctz Tabs (160/12.5mg) 0 each PO DAILY [facility] Last Admin: 02/27/18 09:14 Dose: Not Given Polyethylene Glycol (Miralax) 17 gm PO DAILYPRN PRN PRN Reason: Constipation Last Admin: 02/27/18 09:17 Dose: 17 gm Propylene Glycol (Systane Opth Drop 15ml Bot) 1 drop EA EYE DAILY [facility] Last Admin: 02/27/18 09:13 Dose: 1 drop Senna/Docusate Sodium (Senokot S) 1 tab PO BID [facility] Last Admin: 02/27/18 09:16 Dose: 1 tab Sodium Bicarbonate (Bicarbonate, Sodium) 650 mg PO TID [facility] Last Admin: 02/27/18 09:12 Dose: 650 mg Sodium Chloride (Flush - Normal Saline) 10 ml IVF Q12HR [facility] Last Admin: 02/27/18 09:15 Dose: 10 ml Sodium Chloride (Flush - Normal Saline) 10 ml IVF PRN PRN PRN Reason: Saline Flush Zolpidem Tartrate (Ambien) 5 mg PO HSPRN PRN PRN Reason: Insomnia Last Admin: 02/26/18 20:58 Dose: 5 mg
[2018-02-26] MEDS: Senokot S 8.6-50 MG TAB PO SCH (20:57)
[2018-02-26] MEDS: Zolpidem Tartrate 5 MG TAB PO PRN (20:58)
[2018-02-27] MEDS: Sodium Chloride 0.9% 1,000 ML IV SCH ×3 (01:05→21:11)
[2018-02-27] MEDS: HYDROcodone/Acetaminophen 7.5/325 mg Tablet PO PRN ×8 (02:59→23:59)
[2018-02-27 05:17] LABS: Anion Gap 14 mmol/L (10-20); BUN (Urea Nitrogen) 45 mg/dL (8.4-25.7); Calc. Creatinine Clearance 21 mL/min (70-130); Calcium 8.9 mg/dL (7.8-10.44); Carbon Dioxide 17 mmol/L (23-31); Chloride 110 mmol/L (98-107); Estimated GFR-MDRD 18; Glucose 87 mg/dL (83-110); Potassium 4.3 mmol/L (3.5-5.1); Sodium 137 mmol/L (136-145)
[2018-02-27] MEDS: Ondansetron ODT 4 MG TAB PO PRN ×3 (06:03→18:04)
[2018-02-27 06:33] LABS: Hemoglobin 8.5 g/dL (14.0-18.0); MDiff Complete? YES; Mean Corpuscular HGB CONC 33.6 g/dL (32.0-36.0); Mean Corpuscular Hemoglobin 30.6 pg (27.0-31.0); Mean Corpuscular Volume 91.1 fL (78.0-98.0); Mean Platelet Volume 7.7 fL (7.4-10.4); Platelet Count 119 thou/uL (130-400); RBC Distribution Width 13.5 % (11.5-14.5); Red Blood Cell (RBC) Count 2.78 mill/uL (4.70-6.10); White Blood Cell (WBC) Count 6.6 thou/uL (4.8-10.8)
[2018-02-27 06:34] LABS: Band 12 % (5-11); Lymphocytes 29 % (21-51); Metamyelocyte 1 % (0-0); Monocytes 6 % (0-10); Neutrophil 51 % (42-75); Nucleated RBC 2 % (0); PLT Morphology Comment Appears Decreased
[2018-02-27] MEDS: Ezetimibe 10 MG TAB PO SCH (09:10)
[2018-02-27] MEDS: Sodium Bicarbonate Tab 325 MG TAB PO SCH ×3 (09:12→21:02)
[2018-02-27] MEDS: Latanoprost 0.005% Ophth Soln 2.5 ml Bottle EA EYE SCH (09:13)
[2018-02-27] MEDS: Polyethylene Glycol OPTH DROP 15 ML BOT EA EYE SCH (09:13)
[2018-02-27] MEDS: VALSARTAN PO SCH (09:14)
[2018-02-27] MEDS: HCTZ PO SCH (09:14)
[2018-02-27] MEDS: Senokot S 8.6-50 MG TAB PO SCH ×2 (09:16→21:13)
[2018-02-27] MEDS: Polyethylene Glycol 3350 17 GM Packet PO PRN (09:17)
--- NOTE | 2018-02-27 14:33 | PDOC.PN ---
- Subjective Encounter Start Date: 02/27/18 Encounter Start Time: 11:30 Subjective: pt up in bed no complains - Objective Resuscitation Status: Resuscitation Status FULL:Full Resuscitation Vital Signs & Weight: Vital Signs (12 hours) Temp Pulse Resp BP Pulse Ox 02/27/18 08:00 99.5 F 92 18 90 L 02/27/18 07:16 99.5 F 92 18 140/72 90 L Weight Admit Weight 172 lb 0.074 oz Weight 172 lb 0.074 oz I&O: 02/26/18 02/27/18 02/28/18 06:59 06:59 06:59 Intake Total 4200 3270 Output Total 1999 2300 Balance 2200 970 Result Diagrams: 02/27/18 04:23 02/27/18 04:23 Phys Exam - Physical Examination HEENT: PERRLA, moist MMs, sclera anicteric, TM's clear, oral pharynx no lesions , 2+ tonsils Neck: no nodes, no JVD, supple, full ROM Respiratory: no wheezing, no rales, no rhonchi, wheezing present, clear to auscultation bilateral Cardiovascular: RRR, no significant murmur, no rub, gallop, irregular Dx/Plan (1) Acute renal failure Status: Acute Qualifiers: Acute renal failure type: unspecified Qualified Code(s): N17.9 - Acute kidney failure, unspecified (2) Obstructive uropathy Code(s): N13.9 - OBSTRUCTIVE AND REFLUX UROPATHY, UNSPECIFIED Status: Acute (3) Back pain Code(s): M54.9 - DORSALGIA, UNSPECIFIED Status: Acute Qualifiers: Back pain location: back pain in unspecified location - Plan will rx pt some laxatives -: spoke with oncall urology about pt's renal ultrasound and worsening -: creatinine. recommended to continue to monitor and no need -: for any urgent procedure * . Review of Systems - Review of Systems ENT: negative: Ear Pain, Ear Discharge, Nose Pain, Nose Discharge, Nose Congestion, Mouth Pain, Mouth Swelling, Throat Pain, Throat Swelling, Other Respiratory: negative: Cough, Dry, Shortness of Breath, Hemoptysis, SOB with Excertion, Pleuritic Pain, Sputum, Wheezing Cardiovascular: negative: chest pain, palpitations, orthopnea, paroxysmal nocturnal dyspnea, edema, light headedness, other Gastrointestinal: negative: Nausea, Vomiting, Abdominal Pain, Diarrhea, Constipation, Melena, Hematochezia, Other - Medications/Allergies Allergies/Adverse Reactions: Allergies Allergy/AdvReac Type Severity Reaction Status Date / Time aspirin Allergy Verified 02/22/18 11:37 NSAIDS (Non-Steroidal Allergy Verified 02/22/18 11:37 Anti-Inflamma Medications: Current Medications Acetaminophen (Tylenol) 650 mg PO Q4H PRN PRN Reason: Headache/Fever or Pain Hydrocodone Bitart/Acetaminophen ([place] 7.5/325) 1 tab PO Q3H PRN PRN Reason: Mild Pain (1-3) Last Admin: 02/27/18 12:04 Dose: 1 tab Calcium Carbonate (Tums) 500 mg PO TID PRN PRN Reason: Heartburn or Indigestion Ezetimibe (Zetia) 10 mg PO DAILY [facility] Last Admin: 02/27/18 09:10 Dose: 10 mg Hydralazine HCl (Apresoline) 10 mg PO Q4H PRN PRN Reason: SBP >180 AND DBP >100 Last Admin: 02/26/18 08:40 Dose: 10 mg Sodium Chloride (Normal Saline 0.9%) 1,000 mls @ 100 mls/hr IV .Q10H [facility] Last Admin: 02/27/18 08:26 Dose: 1,000 mls Latanoprost (Xalatan 0.005% Ophth Soln) 1 drop EA EYE DAILY [facility] Last Admin: 02/27/18 09:13 Dose: 1 drop Ondansetron HCl (Zofran Odt) 4 mg PO Q6H PRN PRN Reason: Nausea/Vomiting Last Admin: 02/27/18 12:03 Dose: 4 mg Valsartan/ Hctz Tabs (160/12.5mg) 0 each PO DAILY [facility] Last Admin: 02/27/18 09:14 Dose: Not Given Polyethylene Glycol (Miralax) 17 gm PO DAILYPRN PRN PRN Reason: Constipation Last Admin: 02/27/18 09:17 Dose: 17 gm Propylene Glycol (Systane Opth Drop 15ml Bot) 1 drop EA EYE DAILY [facility] Last Admin: 02/27/18 09:13 Dose: 1 drop Senna/Docusate Sodium (Senokot S) 1 tab PO BID [facility] Last Admin: 02/27/18 09:16 Dose: 1 tab Sodium Bicarbonate (Bicarbonate, Sodium) 650 mg PO TID [facility] Last Admin: 02/27/18 09:12 Dose: 650 mg Sodium Chloride (Flush - Normal Saline) 10 ml IVF Q12HR [facility] Last Admin: 02/27/18 09:15 Dose: 10 ml Sodium Chloride (Flush - Normal Saline) 10 ml IVF PRN PRN PRN Reason: Saline Flush Zolpidem Tartrate (Ambien) 5 mg PO HSPRN PRN PRN Reason: Insomnia Last Admin: 02/26/18 20:58 Dose: 5 mg
[2018-02-27] MEDS ORDERED: Bisacodyl 5 MG TAB PO PRN (14:41)
[2018-02-27] MEDS ORDERED: Bisacodyl 10 MG SUPP PR PRN (14:41)
[2018-02-27] MEDS ORDERED: Bisacodyl 5 MG TAB PO SCH (14:45)
--- NOTE | 2018-02-27 15:09 | HP ---
RENAL MEDICINE HISTORY OF PRESENT ILLNESS: Mr. Blood is a 77-year-old white male who was seen by the Renal Service for his acute kidney injury. Initially, he was diagnosed with left lower bladder outlet obstruction . Creatinine was said to have improved with insertion of Smart catheter. Empiric volume repletion w ith albumin and crystalloid was also done. However, creatinine levels at about 3-3.2 mg percent. A repeat renal ultrasound was done on 02/26/2018 and it showed bilateral hydronephrosis with right wors e than the left. Case discussed with Dr. Estrada yesterday. His feeling is that it might take some time to see radiogr aphical improvement with hydronephrosis. The patient is concerned about this. However, I did discus s with the patient my conversation with Dr. Estrada. I also discussed the case with Dr. Zayas, the ospitalist. He will try to call the urologist and oncologist to review the ultrasound. The patient is passing urine with a Smart catheter. Although his creatinine is slightly higher at 3.31 when comp ared to yesterday at 3.28, it remains relatively unchanged with a GFR of about 18 mL per minute. No other complaints. He does have back pain which Neurosurgery has evaluated the patient. He does c omplain of mild leg edema. on any diuretics. His weight has remained steady and is making good urine output of about 2.3 liters in the last 24 karthik rs. No complaints of chest pain, shortness of breath. OBJECTIVE: VITAL SIGNS: Blood pressure is noted at 140/72, heart rate 92, respiratory rate 18, temperature 99.5 , pulse ox 90%. GENERAL: Awake, alert, comfortable, not in overt distress. SKIN: Adequate turgor. HEENT: Pinkish conjunctivae, anicteric sclerae. NECK: No neck mass, no carotid bruits, no JVD. CHEST: No deformities. LUNGS: Clear breath sounds, no wheezing, no crackles. HEART: Normal sinus rhythm. No murmur, no gallops, no rubs. ABDOMEN: Globular, soft. EXTREMITIES: No edema, no deformities. MEDICATIONS: Medications of 02/27/2018 reviewed. LABORATORY: Laboratories of 02/27/2018, sodium 137, potassium 4.3, chloride 110, carbon dioxide 17, BUN 45, creatinine 3.31, glucose 87, calcium 8.9. ASSESSMENT AND PLAN: Acute kidney injury -- secondary to an obstructive uropathy. Slightly improving renal function last 3 days, creatinine has over around 3 mg percent. He is still diuresing. Urology is following. Repeat ultrasound shows bilateral hydronephrosis with the right worse than the left. Dr. Estrada is aware about this. He feels that there was some delay in the radiographic improvement. The patient will eventually have further urological workup in the next few days. Continue current gentle volume repletion. Currently on albumin and crystalloids. Please note I decreased normal saline 200 mL per hour yesterday. We will check another base met and CBC in a.m. Please note the gross hematuria is a ctually improved.
[2018-02-27] MEDS: Zolpidem Tartrate 5 MG TAB PO PRN (21:03)
[2018-02-28] MEDS: Ondansetron ODT 4 MG TAB PO PRN ×3 (00:01→08:56)
[2018-02-28] MEDS: HYDROcodone/Acetaminophen 7.5/325 mg Tablet PO PRN ×3 (03:02→08:56)
[2018-02-28] MEDS: Sodium Chloride 0.9% 1,000 ML IV SCH ×3 (06:01→17:53)
[2018-02-28 06:20] LABS: Anion Gap 14 mmol/L (10-20); BUN (Urea Nitrogen) 47 mg/dL (8.4-25.7); Calc. Creatinine Clearance 24 mL/min (70-130); Calcium 8.3 mg/dL (7.8-10.44); Carbon Dioxide 17 mmol/L (23-31); Chloride 111 mmol/L (98-107); Estimated GFR-MDRD 22; Glucose 91 mg/dL (83-110); Potassium 4.2 mmol/L (3.5-5.1); Sodium 138 mmol/L (136-145)
[2018-02-28 06:58] LABS: Band 18 % (5-11); Hypochromia SLIGHT = 6-15 cells (100X) (0-5/hpf); Lymphocytes 12 % (21-51); MDiff Complete? YES; Mean Corpuscular HGB CONC 33.5 g/dL (32.0-36.0); Mean Corpuscular Hemoglobin 30.6 pg (27.0-31.0); Mean Corpuscular Volume 91.4 fL (78.0-98.0); Mean Platelet Volume 7.9 fL (7.4-10.4); Monocytes 10 % (0-10); Neutrophil 60 % (42-75); PLT Morphology Comment Appears Adequate; Platelet Count 133 thou/uL (130-400); RBC Distribution Width 13.8 % (11.5-14.5); Red Blood Cell (RBC) Count 2.95 mill/uL (4.70-6.10); White Blood Cell (WBC) Count 5.8 thou/uL (4.8-10.8)
[2018-02-28] MEDS: Polyethylene Glycol OPTH DROP 15 ML BOT EA EYE SCH (08:30)
[2018-02-28] MEDS: Sodium Bicarbonate Tab 325 MG TAB PO SCH ×3 (08:31→21:36)
[2018-02-28] MEDS: Latanoprost 0.005% Ophth Soln 2.5 ml Bottle EA EYE SCH (08:31)
[2018-02-28] MEDS: Ezetimibe 10 MG TAB PO SCH (08:31)
[2018-02-28] MEDS: Senokot S 8.6-50 MG TAB PO SCH ×2 (08:32→21:36)
[2018-02-28] MEDS: VALSARTAN PO SCH (08:32)
[2018-02-28] MEDS: HCTZ PO SCH (08:32)
[2018-02-28] MEDS ORDERED: HYDROcodone/Acetaminophen 7.5/325 mg Tablet PO PRN ×2 (10:10→16:45)
[2018-02-28 10:36] LABS: Hemoglobin 9.5 g/dL (14.0-18.0); Mean Corpuscular Volume 91.3 fL (78.0-98.0); Mean Platelet Volume 7.8 fL (7.4-10.4); Platelet Count 141 thou/uL (130-400); RBC Distribution Width 13.9 % (11.5-14.5); Red Blood Cell (RBC) Count 3.08 mill/uL (4.70-6.10); White Blood Cell (WBC) Count 6.8 thou/uL (4.8-10.8)
[2018-02-28 11:25] LABS: MDiff Complete? YES
[2018-02-28 11:26] LABS: Band 4 % (5-11); Burr Cells SLIGHT = 2-5 cells (100X) (0-1/hpf); Hypochromia SLIGHT = 6-15 cells (100X) (0-5/hpf); Lymphocytes 20 % (21-51); Monocytes 6 % (0-10); Neutrophil 70 % (42-75); PLT Morphology Comment Appears Adequate; Polychromasia SLIGHT = 2-3 cells (100X) (0-2/hpf)
[2018-02-28 11:30] LABS: Bilirubin Negative (Negative); Blood, Urine Large (Negative); Clarity CLOUDY (Clear); Glucose, Urine (Dipstick) Negative (Negative); Leukocyte Negative (Negative); Nitrite Negative (Negative); Protein, Urine (Dipstick) 30 mg/dL (Neg-Trace); Specific Gravity, Urine 1.018 (1.002-1.036); pH, Urine 5.5 (5.0-9.0)
[2018-02-28 11:37] LABS: Bacteria/HPF None Seen HPF (None Seen); Pathc Cast-AUWi Flag 2.18 (0-2.49); RBC/HPF GREATER THAN 50-TNTC HPF (0-3); Squamous Epithelial 0-3 HPF (0-3)
[2018-02-28 11:40] LABS: Yeast-AUWi Flag 39.5 (0-25.0)
--- NOTE | 2018-02-28 11:49 | HP ---
SERVICE: Renal Medicine. HISTORY OF PRESENT ILLNESS: Mr. Blood is a 77-year-old white male, who was seen by the Renal Servic e for his acute kidney injury secondary to presumptive obstructive uropathy. He has already been merrill luated by Urology. Creatinine is slowly improving over the last several days. He has a Smart cathet er. He is noted to be diuresing. This morning, he is complaining of some cough and wheezing. No complaints of chest pain or shortness of breath. PHYSICAL EXAMINATION: VITAL SIGNS: Blood pressure 156/84, heart rate 92, respiratory rate 18, temperature 98.9, pulse ox 9 4%. GENERAL EXAM: Noted to be awake, sitting comfortable, not in distress. SKIN: Adequate turgor. HEENT: Slightly pale conjunctivae, anicteric sclerae. NECK: No neck mass, no carotid bruits, no JVD. CHEST: No deformities. LUNGS: Decreased breath sounds. HEART: Normal sinus rhythm. No murmur, no gallops, no rubs. ABDOMEN: Globular, soft. EXTREMITIES: No edema. Medications of 02/28/2018 reviewed. LABORATORY DATA: Laboratories, 02/28/2018, white count 5.8, hemoglobin 9. Sodium 138, potassium 4.2 , chloride 111, carbon dioxide 17, BUN 47, creatinine 2.87, glucose 91, calcium 8.3. ASSESSMENT AND PLAN: 1. Acute kidney injury secondary to obstructive uropathy. Slowly improving renal function. No roni cation for any dialytic intervention. I agree with current management. Continue Smart catheter. Ur ology is following. The plan is eventually for the patient to undergo cystoscopy. 2. Borderline anemia. Continue to observe. 3. Cough and wheezing. We will give DuoNeb x1 dose and p.r.n. every 6 hours. Overall, agree with current management.
[2018-02-28 11:52] LABS: Hyaline Casts/LPF 0-3 HYALINE CAST LPF (0-3 Hyaline); Other Casts/LPF 0-3 COARSE GRAN LPF (0-3 Hyaline); Yeast-All Forms None Seen HPF (None Seen)
--- NOTE | 2018-02-28 16:41 | PDOC.PN ---
- Subjective Encounter Start Date: 02/28/18 Encounter Start Time: 10:45 Subjective: pt up in bed is oriented but per family is not being himself - Objective Resuscitation Status: Resuscitation Status FULL:Full Resuscitation Vital Signs & Weight: Vital Signs (12 hours) Temp Pulse Resp BP Pulse Ox 02/28/18 15:19 53 L 18 153/80 H 94 L 02/28/18 08:00 98.9 F 92 18 94 L 02/28/18 07:36 98.9 F 92 18 156/84 H 94 L Weight Admit Weight 172 lb 0.074 oz Weight 172 lb 0.074 oz I&O: 02/27/18 02/28/18 03/01/18 06:59 06:59 06:59 Intake Total 3270 3600 Output Total 2300 1600 Balance 970 2000 Result Diagrams: 02/28/18 10:26 02/28/18 05:17 Phys Exam - Physical Examination HEENT: PERRLA, moist MMs, sclera anicteric, TM's clear, oral pharynx no lesions , 2+ tonsils Neck: no nodes, no JVD, supple, full ROM Respiratory: no wheezing, no rales, no rhonchi, wheezing present, clear to auscultation bilateral Cardiovascular: RRR, no significant murmur, no rub, gallop, irregular Gastrointestinal: soft, non-tender, no distention, positive bowel sounds Dx/Plan (1) Acute renal failure Status: Acute Qualifiers: Acute renal failure type: unspecified Qualified Code(s): N17.9 - Acute kidney failure, unspecified (2) Obstructive uropathy Code(s): N13.9 - OBSTRUCTIVE AND REFLUX UROPATHY, UNSPECIFIED Status: Acute (3) Back pain Code(s): M54.9 - DORSALGIA, UNSPECIFIED Status: Acute Qualifiers: Back pain location: back pain in unspecified location - Plan will start pt on medrol dose pack, will change pain meds to q4 -: i think he is taking in to much pain meds and also got ambien -: he does have some bands will start on ppx abx for now. -: creatinine is better will decrease iv fluids. -: pt's heart rate is low will monitor, he is not on any bp meds * . Review of Systems - Review of Systems ENT: negative: Ear Pain, Ear Discharge, Nose Pain, Nose Discharge, Nose Congestion, Mouth Pain, Mouth Swelling, Throat Pain, Throat Swelling, Other Respiratory: negative: Cough, Dry, Shortness of Breath, Hemoptysis, SOB with Excertion, Pleuritic Pain, Sputum, Wheezing Cardiovascular: negative: chest pain, palpitations, orthopnea, paroxysmal nocturnal dyspnea, edema, light headedness, other Gastrointestinal: negative: Nausea, Vomiting, Abdominal Pain, Diarrhea, Constipation, Melena, Hematochezia, Other Genitourinary: negative: Dysuria, Frequency, Incontinence, Hematuria, Retention , Other - Medications/Allergies Allergies/Adverse Reactions: Allergies Allergy/AdvReac Type Severity Reaction Status Date / Time aspirin Allergy Verified 02/22/18 11:37 NSAIDS (Non-Steroidal Allergy Verified 02/22/18 11:37 Anti-Inflamma Medications: Current Medications Acetaminophen (Tylenol) 650 mg PO Q4H PRN PRN Reason: Headache/Fever or Pain Hydrocodone Bitart/Acetaminophen ([place] 7.5/325) 1 tab PO Q4H PRN PRN Reason: Mild Pain (1-3) Last Admin: 02/28/18 12:46 Dose: 1 tab Hydrocodone Bitart/Acetaminophen ([place] 5/325) 1 tab PO Q4H PRN PRN Reason: Pain Albuterol/Ipratropium (Duoneb) 3 ml NEB [id number] PRN PRN Reason: SOB &/or Wheezing Bisacodyl (Dulcolax) 5 mg PO DAILYPRN PRN PRN Reason: Constipation Bisacodyl (Dulcolax) 10 mg [place] Q8H PRN PRN Reason: Constipation Calcium Carbonate (Tums) 500 mg PO TID PRN PRN Reason: Heartburn or Indigestion Ezetimibe (Zetia) 10 mg PO DAILY [facility] Last Admin: 02/28/18 08:31 Dose: 10 mg Famotidine (Pepcid) 20 mg PO BID [facility] Hydralazine HCl (Apresoline) 10 mg PO Q4H PRN PRN Reason: SBP >180 AND DBP >100 Last Admin: 02/26/18 08:40 Dose: 10 mg Ceftriaxone Sodium 1 gm/ (Sodium Chloride) 100 mls @ 200 mls/hr IVPB Q24HR [facility] Sodium Chloride (Normal Saline 0.9%) 1,000 mls @ 50 mls/hr IV .Q20H [facility] Latanoprost (Xalatan 0.005% Ophth Soln) 1 drop EA EYE DAILY [facility] Last Admin: 02/28/18 08:31 Dose: 1 drop Methylprednisolone (Medrol Dospak) 4 mg PO NOW [facility] Ondansetron HCl (Zofran Odt) 4 mg PO Q6H PRN PRN Reason: Nausea/Vomiting Last Admin: 02/28/18 08:56 Dose: 4 mg Valsartan/ Hctz Tabs (160/12.5mg) 0 each PO DAILY [facility] Last Admin: 02/28/18 08:32 Dose: Not Given Propylene Glycol (Systane Opth Drop 15ml Bot) 1 drop EA EYE DAILY [facility] Last Admin: 02/28/18 08:30 Dose: 1 drop Senna/Docusate Sodium (Senokot S) 1 tab PO BID [facility] Last Admin: 02/28/18 08:32 Dose: 1 tab Sodium Bicarbonate (Bicarbonate, Sodium) 650 mg PO TID [facility] Last Admin: 02/28/18 15:00 Dose: 650 mg Sodium Chloride (Flush - Normal Saline) 10 ml IVF Q12HR [facility] Last Admin: 02/28/18 08:32 Dose: 10 ml Sodium Chloride (Flush - Normal Saline) 10 ml IVF PRN PRN PRN Reason: Saline Flush Zolpidem Tartrate (Ambien) 5 mg PO HSPRN PRN PRN Reason: Insomnia Last Admin: 02/27/18 21:03 Dose: 5 mg
[2018-02-28] MEDS ORDERED: methylPREDNISolone 4 mg Tablet PO SCH (16:45)
[2018-02-28] MEDS ORDERED: cefTRIAXone\\ROCEPHIN 1 GM in Sodium Chloride 0.9% 100 ML IVPB SCH (17:00)
[2018-02-28] MEDS: HYDROcodone/Acetaminophen 5/325 mg Tablet PO PRN ×2 (17:50→21:37)
[2018-02-28] MEDS: methylPREDNISolone 4 mg Tablet PO SCH ×3 (17:52→21:36)
[2018-02-28] MEDS: Famotidine 20 MG TAB PO SCH (21:36)
[2018-03-01] MEDS: HYDROcodone/Acetaminophen 5/325 mg Tablet PO PRN ×6 (01:54→21:59)
[2018-03-01 05:17] LABS: Anion Gap 14 mmol/L (10-20); BUN (Urea Nitrogen) 47 mg/dL (8.4-25.7); Calc. Creatinine Clearance 28 mL/min (70-130); Calcium 8.7 mg/dL (7.8-10.44); Carbon Dioxide 18 mmol/L (23-31); Chloride 113 mmol/L (98-107); Estimated GFR-MDRD 25; Glucose 126 mg/dL (83-110); Potassium 4.8 mmol/L (3.5-5.1); Sodium 140 mmol/L (136-145)
[2018-03-01] MEDS: Sodium Chloride 0.9% 1,000 ML IV SCH (06:07)
--- NOTE | 2018-03-01 08:51 | PRG ---
DATE OF SERVICE: 02/28/2018 The patient had an SPEP, which was on 02/23/2018, and there is some mildly increased M-spike with thi s. For this reason, we will order serum and urine immunoelectrophoresis.
[2018-03-01] MEDS: Senokot S 8.6-50 MG TAB PO SCH ×2 (08:58→21:17)
[2018-03-01] MEDS: Ezetimibe 10 MG TAB PO SCH (08:58)
[2018-03-01] MEDS: methylPREDNISolone 4 mg Tablet PO SCH ×3 (08:59→16:27)
[2018-03-01] MEDS: Latanoprost 0.005% Ophth Soln 2.5 ml Bottle EA EYE SCH (08:59)
[2018-03-01] MEDS: Polyethylene Glycol OPTH DROP 15 ML BOT EA EYE SCH (08:59)
[2018-03-01] MEDS: Sodium Bicarbonate Tab 325 MG TAB PO SCH ×3 (08:59→21:18)
[2018-03-01] MEDS: HCTZ PO SCH (09:00)
[2018-03-01] MEDS: VALSARTAN PO SCH (09:00)
--- NOTE | 2018-03-01 09:45 | HP ---
HISTORY OF PRESENT ILLNESS: Mr. Blood is a 77-year-old white male, who was seen and admitted for ac [place] kidney injury secondary to obstructive uropathy. Urology has evaluated this patient. Smart cath eter has been inserted. He has been making urine. In addition, renal function is slowly improving. No new complaints today. REVIEW OF SYSTEMS: No chest pain or shortness of breath. PHYSICAL EXAMINATION: VITAL SIGNS: Blood pressure is 132/75, heart rate 65, respiratory rate 18, temperature 98.2, pulse o ximetry 93%. GENERAL EXAM: Awake, alert, comfortable, not in distress. SKIN: Adequate turgor. HEENT: Pinkish conjunctivae, anicteric sclerae. NECK: No neck mass, no carotid bruits, no JVD. CHEST: No deformities. LUNGS: Clear breath sounds, no wheezing, no crackles. HEART: Normal sinus rhythm. No murmur, no gallops, no rubs. ABDOMEN: Globular, soft, nontender, no masses. EXTREMITIES: No edema, no deformities. Medications of 03/01/2018 reviewed. LABORATORY DATA: Laboratories of 03/01/2018, sodium 140, potassium 4.8, chloride 113, carbon dioxide 18, BUN 47, creatinine 2.48, glucose 126, calcium 8.7. White count 6.8, hemoglobin 9.5. ASSESSMENT AND PLAN: Acute kidney injury secondary to obstructive uropathy. Slowly improving renal function. Creatinine is much improved. Continue current supportive management. Urology following. Eventually, the patient will have cystoscopy. Please note, the patient's renal function remains sti ll above his baseline. A recent urinalysis was done, which showed no findings of a coarse granular c ast. This suggests that the patient may have a superimposed acute tubular necrosis. Management is e ssentially supportive. Please note, there is no indication for any dialytic intervention with this p atient. Continue IV hydration. Recheck basic metabolic panel and CBC in a.m.
[2018-03-01] MEDS: Ondansetron ODT 4 MG TAB PO PRN ×2 (10:15→18:08)
--- NOTE | 2018-03-01 15:17 | PDOC.PN ---
- Subjective Encounter Start Date: 03/01/18 Encounter Start Time: 12:30 Subjective: pt up in bed feels better today - Objective Resuscitation Status: Resuscitation Status FULL:Full Resuscitation Vital Signs & Weight: Vital Signs (12 hours) Temp Pulse Resp BP Pulse Ox 03/01/18 08:00 98.2 F 65 18 93 L 03/01/18 07:34 98.2 F 65 18 132/75 93 L Weight Admit Weight 172 lb 0.074 oz Weight 172 lb 0.074 oz I&O: 02/28/18 03/01/18 03/02/18 06:59 06:59 06:59 Intake Total 3600 3000 240 Output Total 1600 750 Balance 2000 2250 240 Result Diagrams: 02/28/18 10:26 03/01/18 04:52 Phys Exam - Physical Examination HEENT: PERRLA, moist MMs, sclera anicteric, TM's clear, oral pharynx no lesions , 2+ tonsils Neck: no nodes, no JVD, supple, full ROM Respiratory: no wheezing, no rales, no rhonchi, wheezing present, clear to auscultation bilateral Cardiovascular: RRR, no significant murmur, no rub, gallop, irregular Gastrointestinal: soft, non-tender, no distention, positive bowel sounds Dx/Plan (1) Acute renal failure Status: Acute Qualifiers: Acute renal failure type: unspecified Qualified Code(s): N17.9 - Acute kidney failure, unspecified (2) Obstructive uropathy Code(s): N13.9 - OBSTRUCTIVE AND REFLUX UROPATHY, UNSPECIFIED Status: Acute (3) Back pain Code(s): M54.9 - DORSALGIA, UNSPECIFIED Status: Acute Qualifiers: Back pain location: back pain in unspecified location - Plan pt's pain has improved -: will continue to decrease pain meds -: creatinine is improving -: possible discharge in am is ok with nephro. -: MRI indicated abnormal marrow, peripheral blood smear anemia * . mild elevated M spike. Additional test ordered. urine and serum immunopherisis ordered Review of Systems - Review of Systems Respiratory: negative: Cough, Dry, Shortness of Breath, Hemoptysis, SOB with Excertion, Pleuritic Pain, Sputum, Wheezing Cardiovascular: negative: chest pain, palpitations, orthopnea, paroxysmal nocturnal dyspnea, edema, light headedness, other Gastrointestinal: negative: Nausea, Vomiting, Abdominal Pain, Diarrhea, Constipation, Melena, Hematochezia, Other Genitourinary: negative: Dysuria, Frequency, Incontinence, Hematuria, Retention , Other - Medications/Allergies Allergies/Adverse Reactions: Allergies Allergy/AdvReac Type Severity Reaction Status Date / Time aspirin Allergy Verified 02/22/18 11:37 NSAIDS (Non-Steroidal Allergy Verified 02/22/18 11:37 Anti-Inflamma Medications: Current Medications Acetaminophen (Tylenol) 650 mg PO Q4H PRN PRN Reason: Headache/Fever or Pain Hydrocodone Bitart/Acetaminophen ([place] 5/325) 1 tab PO Q4H PRN PRN Reason: Moderate Pain (4-6) Last Admin: 03/01/18 14:21 Dose: 1 tab Hydrocodone Bitart/Acetaminophen ([place] 7.5/325) 1 tab PO Q6H PRN PRN Reason: Mild Pain (1-3) Albuterol/Ipratropium (Duoneb) 3 ml NEB [id number] PRN PRN Reason: SOB &/or Wheezing Bisacodyl (Dulcolax) 5 mg PO DAILYPRN PRN PRN Reason: Constipation Bisacodyl (Dulcolax) 10 mg MA Q8H PRN PRN Reason: Constipation Calcium Carbonate (Tums) 500 mg PO TID PRN PRN Reason: Heartburn or Indigestion Ezetimibe (Zetia) 10 mg PO DAILY [facility] Last Admin: 03/01/18 08:58 Dose: 10 mg Famotidine (Pepcid) 20 mg PO Q24HR [facility] Last Admin: 02/28/18 21:36 Dose: 20 mg Hydralazine HCl (Apresoline) 10 mg PO Q4H PRN PRN Reason: SBP >180 AND DBP >100 Last Admin: 02/26/18 08:40 Dose: 10 mg Sodium Chloride (Normal Saline 0.9%) 1,000 mls @ 50 mls/hr IV .Q20H [facility] Last Admin: 03/01/18 06:07 Dose: 1,000 mls Latanoprost (Xalatan 0.005% Oph Soln) 1 drop EA EYE DAILY [facility] Last Admin: 03/01/18 08:59 Dose: 1 drop Melatonin (Melatonin) 3 mg PO HS PRN PRN Reason: Insomnia Methylprednisolone (Medrol) 4 mg PO 0800,1300,1800 [facility] Stop: 03/01/18 18:01 Last Admin: 03/01/18 13:49 Dose: 4 mg Methylprednisolone (Medrol) 8 mg PO 2100 [facility] Stop: 03/01/18 21:01 Methylprednisolone (Medrol) 4 mg PO 0800,1200,1700,2100 [facility] Stop: 03/02/18 21:01 Methylprednisolone (Medrol) 4 mg PO 0800,1200,1700 [facility] Stop: 03/03/18 17:01 Methylprednisolone (Medrol) 4 mg PO 0800,1700 [facility] Stop: 03/04/18 17:01 Methylprednisolone (Medrol) 4 mg PO 0800 [facility] Stop: 03/05/18 08:01 Ondansetron HCl (Zofran Odt) 4 mg PO Q6H PRN PRN Reason: Nausea/Vomiting Last Admin: 03/01/18 10:15 Dose: 4 mg Valsartan/ Hctz Tabs (160/12.5mg) 0 each PO DAILY [facility] Last Admin: 03/01/18 09:00 Dose: Not Given Propylene Glycol (Systane Opth Drop 15ml Bot) 1 drop EA EYE DAILY [facility] Last Admin: 03/01/18 08:59 Dose: 1 drop Senna/Docusate Sodium (Senokot S) 1 tab PO BID [facility] Last Admin: 03/01/18 08:58 Dose: 1 tab Sodium Bicarbonate (Bicarbonate, Sodium) 650 mg PO TID [facility] Last Admin: 03/01/18 14:21 Dose: 650 mg Sodium Chloride (Flush - Normal Saline) 10 ml IVF Q12HR [facility] Last Admin: 03/01/18 09:00 Dose: 10 ml Sodium Chloride (Flush - Normal Saline) 10 ml IVF PRN PRN PRN Reason: Saline Flush
[2018-03-01] MEDS ORDERED: Hydrochlorothiazide 25 MG TAB PO SCH (15:45)
[2018-03-01 20:09] LABS: Albumin-Ur 17.7 % (.); Alpha 1 - Ur 1.8 % (.); Alpha 2 - Ur 11.8 % (.); Beta-Ur 43.4 % (.); Gamma-Ur 25.4 % (.); M-Spike,% Note: % (Not Observed); Protein, Urine 47.8 mg/dL (Not Estab.)
[2018-03-01] MEDS ORDERED: methylPREDNISolone 4 mg Tablet PO SCH (21:00)
[2018-03-01] MEDS: Famotidine 20 MG TAB PO SCH (21:18)
[2018-03-01] MEDS: Melatonin 3 MG TAB PO PRN (21:59)
[2018-03-02] MEDS: HYDROcodone/Acetaminophen 5/325 mg Tablet PO PRN ×6 (02:08→21:19)
--- NOTE | 2018-03-02 06:47 | EKG ---
Test Reason : Blood Pressure : / mmHG Vent. Rate : 087 BPM Atrial Rate : 087 BPM P-R Int : 146 ms QRS Dur : 070 ms QT Int : 324 ms P-R-T Axes : 042 042 041 degrees QTc Int : 389 ms Sinus rhythm with occasional Premature ventricular complexes and Premature atrial complexes Otherwise normal ECG When compared with ECG of 22-FEB-2018 12:48, (Unconfirmed) Premature ventricular complexes are now Present Premature atrial complexes are now Present T wave amplitude has decreased in Anterior leads Confirmed by AYDIN BATISTA ([id number]) on 03/02/2018 6:45:48 AM Referred By: Confirmed By:AYDIN BATISTA
[2018-03-02] MEDS: Sodium Chloride 0.9% 1,000 ML IV SCH (07:17)
[2018-03-02] MEDS: VALSARTAN PO SCH ×2 (07:18→18:02)
[2018-03-02] MEDS: HCTZ PO SCH ×2 (07:18→18:02)
[2018-03-02 08:13] LABS: Anion Gap 14 mmol/L (10-20); BUN (Urea Nitrogen) 55 mg/dL (8.4-25.7); Calc. Creatinine Clearance 26 mL/min (70-130); Calcium 8.1 mg/dL (7.8-10.44); Carbon Dioxide 18 mmol/L (23-31); Chloride 112 mmol/L (98-107); Estimated GFR-MDRD 23; Glucose 121 mg/dL (83-110); Potassium 4.7 mmol/L (3.5-5.1); Sodium 139 mmol/L (136-145)
--- NOTE | 2018-03-02 08:27 | PRG ---
DATE OF SERVICE: 03/02/2018 SUBJECTIVE: Mr. Blood is a 77-year-old white male who was seen by the Renal Service for an acute ki dney injury secondary to obstructive uropathy. His renal function never went back to baseline normal . Review of recent urinalysis showed he may have a superimposed acute tubular necrosis. In spite of the acute tubular necrosis, renal function has been improving slowly over time. He is complaining o f back pain. He thinks he is not ready to go home. He wants to have pain clinic seen, but I told hi m it is an outpatient appointment. Furthermore, he was asking if he might be a candidate for rehab. I did explain to him he may need to discuss that with the attending on the [place]. He denies any ches t pain, shortness of breath. Positive for chronic low back pain. PHYSICAL EXAMINATION: VITAL SIGNS: Blood pressure 159/75, heart rate 80, respiratory rate 18, temperature 97.5, pulse ox 9 4%. GENERAL: Awake, alert, sitting comfortable, not in overt distress. SKIN: Adequate turgor. HEENT: He has slightly pale conjunctivae, anicteric sclerae. NECK: No neck mass, no carotid bruits, no JVD. CHEST: No deformities. LUNGS: Clear breath sounds. No wheezing, no crackles. HEART: Normal sinus rhythm. No murmur, no gallops or rubs. ABDOMEN: Globular, soft, nontender, no masses. EXTREMITIES: Trace edema. MEDICATIONS: 03/02/2018 - Reviewed. LABORATORIES: 03/01/2018 - Sodium 140, potassium 4.8, chloride 113, carbon dioxide 18, BUN 47, creat inine 2.48, glucose 126, calcium 8.7. ASSESSMENT AND PLAN: 1. Acute kidney injury - superimposed obstructive uropathy. He may also have underlying acute tubul ar necrosis as suggested by the urine sediment, a finding of pigmented granular casts. Supportive ma nagement. No indication for any dialytic intervention. Renal function slowly improving. 2. Chronic low back pain. The patient is concerned that he may not be able to function well at home and is requesting for rehab evaluation. I told him to discuss it with his attending to see if he mi ght be a candidate for rehab. I did recheck a base met today which is pending. I agree with current management.
[2018-03-02] MEDS: Ezetimibe 10 MG TAB PO SCH (08:28)
[2018-03-02] MEDS: Senokot S 8.6-50 MG TAB PO SCH ×2 (08:29→21:20)
[2018-03-02] MEDS: Sodium Bicarbonate Tab 325 MG TAB PO SCH ×3 (08:29→21:18)
[2018-03-02] MEDS: methylPREDNISolone 4 mg Tablet PO SCH ×4 (08:29→21:18)
[2018-03-02] MEDS: Polyethylene Glycol OPTH DROP 15 ML BOT EA EYE SCH (10:10)
[2018-03-02] MEDS: Latanoprost 0.005% Ophth Soln 2.5 ml Bottle EA EYE SCH (10:10)
[2018-03-02] MEDS ORDERED: NIFEdipine XL 30 MG TAB PO SCH (18:15)
--- NOTE | 2018-03-02 21:24 | CON ---
DATE OF CONSULTATION: 03/02/2018 PAIN MANAGEMENT CONSULT REQUESTING PROVIDER: Cristine Zayas MD HISTORY OF PRESENT ILLNESS: Mr. Blood is a pleasant 77-year-old male complaining of pain across the low back, radiating over the left buttock into the left inguinal area and over the anterior left thigh. These symptoms have been problematic for greater than 6 months. Mr. Blood denies any specific triggering event or known injury. He states he is quite active and does a lot of bending/lifting/stooping, doing work in his yard and around his home and he thinks he may have injured himself with these activities at some point. Mr. Blood also recalls a fall in the shower 6-8 months ago that may be a contributing factor. Pain is described as "aching/throbbing" and varies in intensity from 5-10/10. Pain increases with activities involving prolonged lying/sitting/standing/walking. Pain improves with position changes. [place] 5/ 325 mg one every 6 hours helps somewhat. Mr. Blood is also being treated with oral steroid. Mr. Blood was admitted to the hospital for an obstructive uropathy and acute renal failure. The pelvic pain associated with these urinary issues has improved over the course of this admission. Mr. Blood states his low back and left leg pain have actually increased over the course of this admission. MRI of the Lumbar spine (02/22/2018) demonstrated disk bulges at L3-L4, L4-L5, and L5-S1. There was mild to moderate central stenosis at L4-L5. There is mild left neural foraminal narrowing at L3-L4, L4-L5, and L5 -S1. PAST MEDICAL HISTORY: Hypertension, high cholesterol, and polio as a child. MEDICATIONS: Zetia 10 mg one daily, tolterodine tartrate 4 mg one daily, valsartan/HCTZ 160/12.5 one daily, Flomax and then Myrbetriq. ALLERGIES: ASPIRIN AND NSAIDs. PAST SURGICAL HISTORY: None. FAMILY HISTORY: Mother of CHF at 88. Father of CHF at 82. Patient has a sister that with coronary artery disease. He had another sister that from colon cancer. SOCIAL HISTORY: Patient is . He denies alcohol and illicit drug abuse. He does not use tobacco in any form. REVIEW OF SYSTEMS: General: No fever or chills. Eyes: No visual changes. ENT: No ear pain/auditory changes, no nasal drainage/bleeding, no throat pain or difficulty swallowing. Cardiac: No chest pain, orthopnea or PND. Respiratory: No cough/wheezing shortness of breath. Gastrointestinal: No N/V/ D. No bowel changes or incontinence. Musculoskeletal: Negative other than the chief complaint. Neurologic: No weakness in the extremities. No saddle anesthesia and no bowel or bladder incontinence. Skin: No rashes. PHYSICAL EXAMINATION: GENERAL: The patient is very pleasant. He is awake. He is alert, cooperative/ conversant. Speech is clear and appropriate. He is in no distress. VITAL SIGNS: Temperature 98.0, pulse 68, respirations 18, even and unlabored, blood pressure 158/68. HEENT: PERRL. EOMI. Sclerae white. Nose and throat are clear. Mucous membranes are moist. NECK: Supple. No JVD. No adenopathy. No midline tenderness over the cervical spine. No cervical paraspinal muscle tenderness. Range of motion of the C-spine is intact and asymptomatic. CHEST: Lungs sounds CTA bilaterally. Respirations even and unlabored. CARDIOVASCULAR: S1, S2 present. No murmurs, rubs or gallops. ABDOMEN: Soft and nontender. Bowel sounds are positive in 4 quadrants. No palpable masses. MUSCULOSKELETAL: T-Spine, no midline tenderness. No reproducible tenderness over the thoracic paraspinal musculature. Thoracic range of motion is intact and asymptomatic. Lumbar spine, no midline tenderness over the L-spine. There is some mild reproducible tenderness with palpation over the low lumbar paraspinal muscles. Lumbar flexion and extension are intact. There is reproducible low back discomfort with flexion and extension of the lumbar spine. Straight leg raise is negative bilaterally. SI joints asymptomatic bilaterally. YAZMIN's negative. Left hip, no reproducible pain with range of motion. Lower extremities, there is some mild pretibial edema bilaterally. NEUROLOGIC: Patellar reflexes are 2+/symmetric. Ankle reflexes are absent bilaterally. Strength in the lower extremities is intact and symmetric. ASSESSMENT: 1. 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 2. Obstructive uropathy. PLAN: Mr. Blood pain is likely multifactorial from the obstructive uropathy along with an underlying lumbar radiculitis in a left L3 pattern. He will follow up for a left transforaminal epidural steroid injection at L3 on an outpatient basis. We will work with him for the injection in the pain clinic upon discharge from the hospital. Further recommendations will be based on his response to the epidural steroid injections. Thank you. NIK
[2018-03-02] MEDS: Melatonin 3 MG TAB PO PRN (21:26)
[2018-03-02] MEDS: Ondansetron ODT 4 MG TAB PO PRN (21:26)
[2018-03-02] MEDS: Famotidine 20 MG TAB PO SCH (21:26)
[2018-03-03] MEDS: HYDROcodone/Acetaminophen 5/325 mg Tablet PO PRN ×2 (03:32→07:55)
--- NOTE | 2018-03-03 05:53 | PDOC.PN ---
- Subjective Encounter Start Date: 03/02/18 Encounter Start Time: 10:00 Subjective: pt up in chair still complains of pain to his lower back - Objective Resuscitation Status: Resuscitation Status FULL:Full Resuscitation Vital Signs & Weight: Vital Signs (12 hours) Temp Pulse Resp BP Pulse Ox 03/02/18 22:39 97.8 F 73 18 188/75 H 92 L 03/02/18 20:00 97.8 F 73 18 92 L 03/02/18 19:01 68 Weight Admit Weight 172 lb 0.074 oz Weight 172 lb 0.074 oz I&O: 03/01/18 03/02/18 03/03/18 06:59 06:59 06:59 Intake Total 3000 1940 2400 Output Total 750 1300 550 Balance 2250 640 1850 Result Diagrams: 02/28/18 10:26 03/02/18 07:32 Phys Exam - Physical Examination Neck: no nodes, no JVD, supple, full ROM Respiratory: no wheezing, no rales, no rhonchi, wheezing present, clear to auscultation bilateral Cardiovascular: RRR, no significant murmur, no rub, gallop, irregular Gastrointestinal: soft, non-tender, no distention, positive bowel sounds Musculoskeletal: no edema, pulses present, edema present Neurological: non-focal, normal sensation, moves all 4 limbs Dx/Plan (1) Acute renal failure Status: Acute Qualifiers: Acute renal failure type: unspecified Qualified Code(s): N17.9 - Acute kidney failure, unspecified (2) Obstructive uropathy Code(s): N13.9 - OBSTRUCTIVE AND REFLUX UROPATHY, UNSPECIFIED Status: Acute (3) Back pain Code(s): M54.9 - DORSALGIA, UNSPECIFIED Status: Acute Qualifiers: Back pain location: back pain in unspecified location - Plan pt is very anxious and waits on getting his pain meds around the clock -: pain medicine has been consulted. Pt will be dischaged in am and will go to -: pain clinic for his shot. -: spoke with nephrology and pt ok to be discharged home. * . Review of Systems - Review of Systems Respiratory: negative: Cough, Dry, Shortness of Breath, Hemoptysis, SOB with Excertion, Pleuritic Pain, Sputum, Wheezing Cardiovascular: negative: chest pain, palpitations, orthopnea, paroxysmal nocturnal dyspnea, edema, light headedness, other Gastrointestinal: negative: Nausea, Vomiting, Abdominal Pain, Diarrhea, Constipation, Melena, Hematochezia, Other Genitourinary: negative: Dysuria, Frequency, Incontinence, Hematuria, Retention , Other - Medications/Allergies Allergies/Adverse Reactions: Allergies Allergy/AdvReac Type Severity Reaction Status Date / Time aspirin Allergy Verified 02/22/18 11:37 NSAIDS (Non-Steroidal Allergy Verified 02/22/18 11:37 Anti-Inflamma Medications: Current Medications Acetaminophen (Tylenol) 650 mg PO Q4H PRN PRN Reason: Headache/Fever or Pain Hydrocodone Bitart/Acetaminophen ([place] 5/325) 1 tab PO Q4H PRN PRN Reason: Moderate Pain (4-6) Last Admin: 03/03/18 03:32 Dose: 1 tab Hydrocodone Bitart/Acetaminophen ([place] 7.5/325) 1 tab PO Q6H PRN PRN Reason: Mild Pain (1-3) Albuterol/Ipratropium (Duoneb) 3 ml NEB [id number] PRN PRN Reason: SOB &/or Wheezing Bisacodyl (Dulcolax) 5 mg PO DAILYPRN PRN PRN Reason: Constipation Bisacodyl (Dulcolax) [address] Q8H PRN PRN Reason: Constipation Calcium Carbonate (Tums) 500 mg PO TID PRN PRN Reason: Heartburn or Indigestion Ezetimibe (Zetia) 10 mg PO DAILY [facility] Last Admin: 03/02/18 08:28 Dose: 10 mg Famotidine (Pepcid) 20 mg PO Q24HR [facility] Last Admin: 03/02/18 21:26 Dose: 20 mg Hydralazine HCl (Apresoline) 10 mg PO Q4H PRN PRN Reason: SBP >180 AND DBP >100 Last Admin: 02/26/18 08:40 Dose: 10 mg Latanoprost (Xalatan 0.005% Ophth Soln) 1 drop EA EYE DAILY [facility] Last Admin: 03/02/18 10:10 Dose: 1 drop Melatonin (Melatonin) 3 mg PO HS PRN PRN Reason: Insomnia Last Admin: 03/02/18 21:26 Dose: 3 mg Methylprednisolone (Medrol) 4 mg PO 0800,1200,1700 [facility] Stop: 03/03/18 17:01 Methylprednisolone (Medrol) 4 mg PO 0800,1700 [facility] Stop: 03/04/18 17:01 Methylprednisolone (Medrol) 4 mg PO 0800 [facility] Stop: 03/05/18 08:01 Metoprolol Succinate (Toprol Xl) 25 mg PO DAILY [facility] Nifedipine (Procardia Xl) 30 mg PO DAILY [facility] Ondansetron HCl (Zofran Odt) 4 mg PO Q6H PRN PRN Reason: Nausea/Vomiting Last Admin: 03/02/18 21:26 Dose: 4 mg Valsartan/ Hctz Tabs (160/12.5mg) 0 each PO DAILY [facility] Last Admin: 03/02/18 18:02 Dose: Not Given Propylene Glycol (Systane Opth Drop 15ml Bot) 1 drop EA EYE DAILY [facility] Last Admin: 03/02/18 10:10 Dose: 1 drop Senna/Docusate Sodium (Senokot S) 1 tab PO BID [facility] Last Admin: 03/02/18 21:20 Dose: 1 tab Sodium Bicarbonate (Bicarbonate, Sodium) 650 mg PO TID [facility] Last Admin: 03/02/18 21:18 Dose: 650 mg Sodium Chloride (Flush - Normal Saline) 10 ml IVF Q12HR [facility] Last Admin: 03/02/18 21:27 Dose: 10 ml Sodium Chloride (Flush - Normal Saline) 10 ml IVF PRN PRN PRN Reason: Saline Flush
[2018-03-03] MEDS: VALSARTAN PO SCH (06:36)
[2018-03-03] MEDS: HCTZ PO SCH (06:36)
[2018-03-03 06:45] LABS: Anion Gap 14 mmol/L (10-20); BUN (Urea Nitrogen) 55 mg/dL (8.4-25.7); Calc. Creatinine Clearance 27 mL/min (70-130); Calcium 8.2 mg/dL (7.8-10.44); Carbon Dioxide 17 mmol/L (23-31); Chloride 110 mmol/L (98-107); Estimated GFR-MDRD 25; Glucose 103 mg/dL (83-110); Potassium 4.1 mmol/L (3.5-5.1); Sodium 137 mmol/L (136-145)
[2018-03-03 07:14] VITALS: BP 162/79; TEMP 97.7
[2018-03-03] MEDS: Sodium Bicarbonate Tab 325 MG TAB PO SCH (07:56)
[2018-03-03] MEDS: Senokot S 8.6-50 MG TAB PO SCH (07:57)
[2018-03-03] MEDS: Ezetimibe 10 MG TAB PO SCH (07:57)
[2018-03-03] MEDS ORDERED: methylPREDNISolone 4 mg Tablet PO SCH (08:00)
[2018-03-03] MEDS: Latanoprost 0.005% Ophth Soln 2.5 ml Bottle EA EYE SCH (08:02)
[2018-03-03] MEDS: Polyethylene Glycol OPTH DROP 15 ML BOT EA EYE SCH (08:07)
[2018-03-03 08:54] LABS: Band 37 % (5-11); Bite Cells SLIGHT = 2-5 cells (100X) (0-1/hpf); Hemoglobin 9.1 g/dL (14.0-18.0); Lymphocytes 11 % (21-51); MDiff Complete? YES; Mean Corpuscular HGB CONC 33.4 g/dL (32.0-36.0); Mean Corpuscular Hemoglobin 30.3 pg (27.0-31.0); Mean Corpuscular Volume 90.5 fL (78.0-98.0); Mean Platelet Volume 8.2 fL (7.4-10.4); Metamyelocyte 3 % (0-0); Monocytes 3 % (0-10); Myelocyte 4 % (0-0); Neutrophil 41 % (42-75); Nucleated RBC 2 % (0); PLT Morphology Comment Appears Decreased; Platelet Count 106 thou/uL (130-400); Polychromasia SLIGHT = 2-3 cells (100X) (0-2/hpf); RBC Distribution Width 14.1 % (11.5-14.5); Reactive Lymphocytes 1 % (0-10); Red Blood Cell (RBC) Count 3.01 mill/uL (4.70-6.10); White Blood Cell (WBC) Count 8.8 thou/uL (4.8-10.8)
[2018-03-03] MEDS ORDERED: NIFEdipine XL 30 MG TAB PO SCH (09:00)
--- NOTE | 2018-03-03 09:12 | PRG ---
DATE OF SERVICE: 03/03/2018 SUBJECTIVE: Mr. Blood is a 77-year-old white male who was seen for an acute kidney injury that was initially from an obstructive uropathy. Renal function improved, but never went to normal. Review o f the urinalysis showed he has a superimposed acute tubular necrosis and this may explain why the cre atinine never went to normal, but he is leveling off at about 2.5 mg percent. He also complained of chronic low back pain. He was seen by the pain specialist. He will have an intra-articular injectio n of the back after discharge. The plan is to discharge him today. He also had an abnormal UPEP. 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 A urine serum protein immunoelectrophoresis was done. This will be followed up at the outpatient clinic. No other complaints except for the chronic low back pain. No chest pain or shortness of breath. PHYSICAL EXAMINATION: VITAL SIGNS: Blood pressure is 162/79, heart rate 81, respiratory rate 18, temperature 97.7, pulse o x 92%. GENERAL: Noted to be awake, alert, comfortable, not in distress. SKIN: Adequate turgor. HEENT: He has pinkish conjunctivae, anicteric sclerae. NECK: No neck mass, no carotid bruits, no JVD. CHEST: No deformities. LUNGS: Clear breath sounds, no wheezing, no crackles. HEART: Normal sinus rhythm. No murmur, no gallops or rubs. ABDOMEN: Globular, soft, nontender, no masses. EXTREMITIES: No edema, no deformities. MEDICATIONS: 03/03/2018 - Reviewed. LABORATORY: 03/03/2018 - Sodium 137, potassium 4.1, chloride 110, carbon dioxide 17, BUN 55, creatin ine 2.53, glucose 103, calcium 8.2. ASSESSMENT AND PLAN: 1. Acute kidney injury in multifactorial. Combined obstructive uropathy with superimposed acute tub ular necrosis. Continue supportive care. The patient has a Smart catheter. He will be following up with Dr. Estrada for his obstructive uropathy. He will report to the Renal Clinic for us to further m onitor his renal dysfunction secondary to acute tubular necrosis. 2. Monoclonal gammopathy of undetermined significance - we will reevaluate at the clinic. We will a wait the results of the urine and serum protein immunoelectrophoresis. If needed, we can defer this patient to Hematology. 3. Chronic low back pain. The patient to be discharged today and will see the pain clinic specialis t after discharge for intra-articular shots. The case discussed with the hospitalist.
[2018-03-03 18:10] LABS: IgA - Total IgA (Sendout) 81 mg/dL (61-437); Immunoglobulin - G (Sendout) 450 mg/dL (700-1600); Immunoglobulin - M (Sendout) 57 mg/dL (15-143)
[2018-03-04] MEDS ORDERED: methylPREDNISolone 4 mg Tablet PO SCH (08:00)
[2018-03-05] MEDS ORDERED: methylPREDNISolone 4 mg Tablet PO SCH (08:00)
== END 2018-03-03 09:36 | disposition home health service (06) | DRG 698 ==
LOC: SCSER 05:57 → T4-A 08:05
PROVIDERS: ADMIT Internal Medicine; ATTEND Internal Medicine
DX: N13.9 Obstructive and reflux uropathy, unspecified (principal); N17.0 Acute kidney failure with tubular necrosis; I10 Essential (primary) hypertension; E78.00 Pure hypercholesterolemia, unspecified; M54.5 Low back pain; G89.29 Other chronic pain; R31.9 Hematuria, unspecified; Z79.82 Long term (current) use of aspirin; N39.0 Urinary tract infection, site not specified; E86.0 Dehydration; N40.1 Benign prostatic hyperplasia with lower urinary tract symptoms; R33.8 Other retention of urine
CPT/HCPCS: 36415; 51702; 51798; 71046; 72148; 72170; 74176; 76770; 80048; 80053; 81003; 81015; 82274; 82570; 83735; 84153; 84165; 84166; 84300; 85025; 85060; 86334; 87086; 93005; 93010; A4216; G8978-GP-CK; G8979-GP-CK; G8980-GP-CK; J0696; J1040; J2001; J2405; J7050; P9047; Q0162; S0020

== ENCOUNTER 2018-03-04 16:22 | Emergency (ER) | payer MEDICARE, BC | END 2018-03-04 18:23 | disposition home or self-care (01) | LOC: SCSER 16:22 | DX: I10 Essential (primary) hypertension (principal); E78.5 Hyperlipidemia, unspecified | CPT/HCPCS: 99283 ==

== ENCOUNTER 2018-03-10 05:53 | Day surgery (SDC) | payer MEDICARE, BC ==
[2018-03-09 12:01] VITALS: BMI 27.2
[2018-03-10] MEDS ORDERED: Fentanyl 100 MCG/2 ML VIAL ONE ×2 (06:54→09:04)
[2018-03-10 07:10] LABS: Hemoglobin 9.8 g/dL (14.0-18.0); Mean Corpuscular HGB CONC 32.5 g/dL (32.0-36.0); Mean Corpuscular Hemoglobin 29.3 pg (27.0-31.0); Mean Corpuscular Volume 90.1 fL (78.0-98.0); Mean Platelet Volume 9.7 fL (7.4-10.4); Platelet Count 101 thou/uL (130-400); RBC Distribution Width 14.5 % (11.5-14.5); Red Blood Cell (RBC) Count 3.33 mill/uL (4.70-6.10); White Blood Cell (WBC) Count 11.5 thou/uL (4.8-10.8)
[2018-03-10 07:13] LABS: INR-International Normal Ratio 1.4; Prothrombin Time 17.4 SEC (12.0-14.7)
[2018-03-10 07:14] LABS: PTT 48.8 SEC (22.9-36.1)
[2018-03-10] MEDS ORDERED: Sodium Chloride 0.9% 100 ML ONE (07:15)
[2018-03-10] MEDS ORDERED: cefTRIAXone\\ROCEPHIN 1 GM VIAL ONE (07:15)
[2018-03-10 07:29] LABS: Anion Gap 17 mmol/L (10-20); BUN (Urea Nitrogen) 76 mg/dL (8.4-25.7); Calc. Creatinine Clearance 23 mL/min (70-130); Calcium 8.3 mg/dL (7.8-10.44); Carbon Dioxide 20 mmol/L (23-31); Chloride 103 mmol/L (98-107); Estimated GFR-MDRD 18; Glucose 96 mg/dL (83-110); Potassium 4.7 mmol/L (3.5-5.1); Sodium 135 mmol/L (136-145)
[2018-03-10] MEDS ORDERED: Iothalamate Meglumine 60% 50 ML VIAL FS ONE (07:54)
[2018-03-10] MEDS ORDERED: Furosemide 20 MG/2 ML VIAL ONE (08:31)
[2018-03-10] MEDS ORDERED: Ondansetron HCl/PF 4 MG/2 ML Vial ONE (09:55)
[2018-03-10] MEDS ORDERED: Lidocaine 1% PF 5 ML VIAL ONE (09:55)
[2018-03-10] MEDS ORDERED: ePHEDrine/0.9% NaCl/PF SYRINGE 50 mg/10 ml ONE (09:55)
--- NOTE | 2018-03-10 10:14 | OP ---
DATE OF PROCEDURE: 03/10/2018 PREOPERATIVE DIAGNOSES: Hematuria, urinary retention, bladder lesion. POSTOPERATIVE DIAGNOSES: Hematuria, urinary retention, bladder lesion. PROCEDURE PERFORMED: Cystoscopy, left retrograde with stent, TURBT, right retrograde with stent. Ex am under anesthesia. SURGEON: Dr. Adarsh Estrada. ANESTHETIC: General. ESTIMATED BLOOD LOSS: Probably 50-75 mL. FINDINGS: There is a lot of irregular nodular friable tissue on the floor trigone and bladder neck r egion, resected it in 3 different specimens of tissue on the floor, first the trigone and bladder nec k second and then the right sided trigone and right ureteral orifice last. DRAINS PLACED: An 18-Tristanian Smart with 20 mL in the balloon, 4.8 x 24 cm bilateral double-J stents w ithout strings attached. INDICATIONS FOR SURGERY: This is a 77-year-old white male who presented about 10-14 days ago with a creatinine of 7, distended urinary bladder, bilateral hydronephrosis. He had a catheter placed. His creatinine came down into the low 3 range and it stabilized there. His urine was bloody after the c atheter was placed and then it cleared. He came into my office a week ago for a CMG which we could n ot adequately do as he had a spinal injection for his significant back pain and we were not able to a dequately assess the bladder. We did a cystoscopy; however, and he had irregular looking tissue on t he trigone and floor and was set up to come in for this procedure today. OPERATIVE TECHNIQUE: After obtaining written and verbal consent from the patient after receiving IV antibiotics, he was taken to the operating suite. He was placed in supine position on the treatment table. PlexiPulses placed on his lower extremities and turned on. He was given a general anesthetic , oral lactated intubation, placed in the dorsal lithotomy position, sterilely prepped and draped. T he C-arm was placed in position to use for fluoroscopy. His Smart catheter had been removed before p repping and draping him. Cystoscopy was performed with a 22 Tristanian sheath well-lubricated, passed un fidencio direct vision through the male urethra into the urinary bladder with aid of a 30-degree lens and video camera and monitor. The bladder was filled and emptied a number of times and examined with bot h 30 and 70 lens. Using a 30-degree lens, we were able to locate the left ureteral orifice and we fe d a guidewire up this, an open-ended catheter by that and then injected contrast through this opening in the catheter showing that the left collecting system was dilated down to about the junction of th e upper 2/3 and lower 1/3 of the ureter. A guidewire was fed up through the open-ended catheter agai n and the open-ended catheter was removed and we did go ahead and pass the stent over the guidewire, pushed into place with the aid of a pusher so was in good position, so that the proximal end coiled i n the renal pelvis and its distal end coiled in the bladder. We then attempted to find the right ure teral orifice. It was really imbedded in mass of tissue tumor inflammation. So we did not go any fu rther trying to get a stent up at that time. At this point, we went ahead and removed the instrument s, passed a 24-Tristanian resectoscope sheath with visual obturator into the bladder, then used the Wipebook er cutting loop and a Gyrus system with an Monster Digital resectoscope and a 30-degree lens and video camer a and monitor. We initially resected the tumor on the floor and then cauterized it. Then the trigon e between the areas where we assume both ureteral orifices were in the bladder neck region and sent t hose off together and obtained hemostasis. Then, we relooked to hopefully find the right ureteral or ifice and we still could not identify it so we went ahead and resected the right side of the trigone and then were able to identify the ureteral orifice after doing this. At this point, a guidewire was fed up the right ureteral orifice. A 5 Tristanian Pollack catheter was placed over that. We drained 60 mL of urine that was stained purple from indigo carmine which he had received near the beginning of the case. We then injected about 20 mL of contrast that showed the ureter was still mildly dilated o n this time. I think it was probably more than mildly dilated I think because we drained 60 mL out o f it, it would have been significantly more dilated. This did come down to about 3/[address] down th e right ureter, it was somewhat tortuous and seemed to narrow down in this region also. At this poin t, the guidewire was replaced and we placed a stent up this side using the same technique as the oppo site side. At this point, there was good hemostasis. We removed the instruments, passed a Smart cat heter. It was draining well. After the balloon was inflated, we hand irrigated. A rectal exam was done. The prostate itself does not feel significantly abnormal. However, the area above the prostat e is thickened on bimanual exam and there is some suggestion of even some fixation of the floor of th e bladder. At this point, he was taken out of the dorsal lithotomy position, awakened and extubated and taken by stretcher to the recovery room.
--- NOTE | 2018-03-10 10:30 | RAD ---
BILATERAL RETROGRADE UROGRAMS: Date: 03-10-18 History: Renal failure/obstructive uropathy. Bilateral hydronephrosis. FINDINGS: Parts And Service Manager image demonstrates calcifications overlying the lower hemipelvis shown to represent phleboliths on prior CT exam. Bilateral urograms are performed which demonstrate bilateral hydronephrosis and hy droureter. Images on the left appear to represent a small amount of extravasation of contrast adjacen t to the renal pelvis versus extravasation of contrast. This does not persistent on delayed images de monstrating bilateral ureteral stents in place. Proximal portion of each renal stent overlies the trinity al pelvis, distal portions overlying the expected location of the urinary bladder. IMPRESSION: 1. Bilateral hydronephrosis and hydroureter. 2. Bilateral ureteral stent placement. Correlation with intraoperative findings recommended. POS: FOREIGN
--- NOTE | 2018-03-15 09:17 | PQF ---
[facility] POST DISCHARGE CLINICAL DOCUMENTATION IMPROVEMENT CLARIFICATION FORM l Todays Date: 03/15/18 l Patients Name AMADA PAGE JR l l Admit Date 03/10/18 l Disch Date 03/10/18 Telephonic Nurse Name Scotty Damon Email: [email or web address] Cell: [phone] Present Clinical Indicators - Signs / Symptoms Results and Location in Medical Record [ ] Documentation of: [ ] [ ] Documentation of: [ ] [ ] Documentation of: [ ] [ ] Documentation of: [ ] [ ] Risks [ ] [ ] [ ] Treatment [ ] Transitional cell carcinoma of Bladder Please specify the size of resected bladder tumors in operative report [ ] [ ] Adarsh Abraham The documentation in this patients record requires clarification to ensure coding compliance and accuracy. Check the appropriate box and include in your discharge summary. [ ] [ ] [ ] [ ] Please check this box if this does not apply to this patient [ ] Unable to determine [ ] Other diagnosis: Review the following information and exercise your independent professional judgment in responding to the clarification. Based upon the clinical findings, risk factors, and treatment, please clarify if you are treating one of the above probable or suspected diagnoses. MTDD
--- NOTE | 2018-05-03 08:26 | PQF ---
POST DISCHARGE CLINICAL DOCUMENTATION IMPROVEMENT CLARIFICATION FORM l Todays Date: 05/03/2018 l Patients Name Blaine Blood Jr l l Admit Date 03/10/18 l Disch Date 03/10/18 Program Instructor Contact Name: Email: Cell: Present Clinical Indicators - Signs / Symptoms Results and Location in Medical Record [ ] Documentation of: [ ] [ ] [ ] Risks [ ] [ ] [ ] Treatment [ ] Transitional cell carcinoma of bladder Please specify the size of the bladder tumors. [ ] [ ] Dr. Adarsh Estrada The documentation in this patients record requires clarification to ensure coding compliance and accuracy. Check the appropriate box and include in your discharge summary/addendum. [ ] [ ] [ ] Please check this box if this does not apply to this patient [ ] Unable to determine [ ] Other diagnosis/procedure: Review the following information and exercise your independent professional judgment in responding to the clarification. Based upon the clinical findings, risk factors, and treatment, please clarify if you are treating one of the above probable or suspected diagnoses. Physician Signature: Date Time MTDD
== END 2018-03-10 11:35 | disposition home or self-care (01) ==
LOC: SDC 05:53
PROVIDERS: ATTEND Urology
PROC: 0T5B8ZZ Destruction of Bladder, Via Natural or Artificial Opening Endoscopic (ICD-10-PCS; principal; 2018-03-10)
PROC: 0T788DZ Dilation of Bilateral Ureters with Intraluminal Device, Via Natural or Artificial Opening Endoscopic (ICD-10-PCS; 2018-03-10)
DX: C67.0 Malignant neoplasm of trigone of bladder (principal); C67.5 Malignant neoplasm of bladder neck; N13.30 Unspecified hydronephrosis; Z79.899 Other long term (current) drug therapy; Z88.6 Allergy status to analgesic agent; Z88.8 Allergy status to other drugs, medicaments and biological substances
CPT/HCPCS: 52224; 52332; 74420; 80048; 85027; 85610; 85730; 88307; C1758; C1769; 88305; J0696; J1940; J2001; J2405; J3010; J7050; Q9961

== ENCOUNTER 2018-03-18 08:21 | Outpatient (CLI) | payer MEDICARE, BC ==
--- NOTE | 2018-03-18 12:24 | PET ---
NUCLEAR MEDICINE FDG PET CT: (Positron Emission Tomography) DATE: 03/18/18 HISTORY: 77-year-old male with bladder cancer. Initial staging. COMPARISON: none TECHNIQUE: IV injection F-18 Fluorodeoxyglucose (FDG) dose: 10.6 mCi PET and attenuation-correction CT performed from skull base to proximal thighs. FINDINGS: SUV (standard uptake value) numbers given are maximum SUV's: There are very extensive mixed sclerotic and lucent changes throughout all visualized portions of the skeleton, including the entire spine. These findings are consistent with diffuse skeletal metastatic disease. As an example, at the S1 sacral body, the SUV is 6.6. There are small bilateral pleural effusions with the right one occupying approximately 10% volume of the right hemithoracic cavity, and the left one occupying approximately 15-20% volume of left hemitho racic cavity. There is no hypermetabolic pleural activity. There is a small amount of free fluid within the abdominal cavity, and especially in the pelvic cavit y. There are bilateral ureteral stents. The upper curl of the right stent is in the right extrarenal pelvis. The upper curl of the left stent is in a left renal upper pole calyx. The lower curls of both stents are within an empty urinary bladder that contains a Smart catheter balloon. Because of intens e FDG activity in the urine in the lumen of the bladder, it is not possible to evaluate FDG avidity i n the bladder wall or in any residual bladder tumor. There is diffusely, heterogeneously increased patchy uptake throughout most of the volume of the live r, and also the spleen. Sample SUVs: Right lobe of liver hepatic segment 6: SUV 6.7. Hepatic segment 4b: SUV 7.1. Right lobe hepatic segment 7: SUV 7.3. Spleen: SUV 5.5. There is a 2 x 1.5 cm right external iliac chain enlarged lymph node with maximum SUV of 3.8. There is a contralateral enlarged left external iliac lymph node measuring approximately 2 x 1.5 cm, which is not hypermetabolic (SUV 2.2). IMPRESSION: 1. Very extensive, diffuse skeletal metastatic disease. 2. Suspicious for diffuse hepatic metastatic disease. Consider contrast-enhanced CT of abdomen and p zoltan, unless contraindicated. 3. Questionable involvement of the spleen. 4. Bilateral pleural effusions, left greater than right. 5. Bilateral ureteral stents. 6. Smart catheter. 7. Bilaterally enlarged external iliac chain lymph nodes. The one on the right is hypermetabolic, an d is consistent with metastatic disease. The one on the left is also enlarged, but not hypermetabolic . FADY Barrett POS: FOREIGN
== END 2018-03-18 08:22 | disposition home or self-care (01) ==
LOC: PET 08:21
PROVIDERS: ATTEND Internal Medicine Hematology & Oncology
DX: C67.9 Malignant neoplasm of bladder, unspecified (principal); C79.51 Secondary malignant neoplasm of bone; J90 Pleural effusion, not elsewhere classified; R59.0 Localized enlarged lymph nodes; Z96.0 Presence of urogenital implants
CPT/HCPCS: 78815; 80053; 82248; 83615; 84100; 84550; A9552